=== PATIENT | female | born 1965 | race Caucasian/White ===

== ENCOUNTER 2019-01-16 13:37 | Emergency (ER) | payer MEDICARE, MEDICAID, SELFPAY ==
[2019-01-16 13:38] VITALS: BP 135/84; PULSE 83; RESP 18; TEMP 36.9; O2SAT 98; BMI 28.2
--- NOTE | 2019-01-16 14:00 | RAD_ITS ---
STUDY: X-RAY - LEFT WRIST REASON FOR EXAM: Female, 53 years old. Pain following a fall one month ago. TECHNIQUE: 3 view(s) of the wrist were obtained. COMPARISON: None. FINDINGS: Impacted nondisplaced fracture of the distal radial metaphysis with the dorsal facing. Normal radiocarpal articulation. Normal distal radioulnar articulation. Normal carpal bones. Normal carpal articulations. Normal carpometacarpal articulation of the thumb. Normal second through fifth carpometacarpal articulations. Normal visualized metacarpal bones. Soft tissue swelling. RAD/Wrist min 3 Views IMPRESSION: Impacted transverse fracture of the distal radial metaphysis with dorsal facing and soft tissue swelling. Electronically Signed: Eulogio Helton, at 14:18 EDT , Service support ,
--- NOTE | 2019-01-16 14:37 | ED.DCSUM_ITS ---
- ER Visit Summary Date of Service: 01/16/19 Chief Complaint: Wrist injury History of Present Illness: The patient is a 53 F presents to the emergency department left wrist injury. Patient states that about a month ago, she was outside on her porch. She was arranging furniture. She tripped and fell and l anded on an outstretched wrist. Since then, she had a lot of pain in the wrist. She is noticed she had a deformity. She did not seek care because she thought it would get better. She denies other injury. She is otherwise been in her normal state of health. Physical Examination: Patient does have obvious deformity of the wrist. The skin is intact. There is no tenting. Pulses are normal. Compartments are soft. Neurovascularly intact. Test Results: [] Emergency Department Course and Treatment: The patient underwent x-rays. There is evidence of a distal radius fracture with intra-articular extension. This is over a month old. I do not feel that reduction would be of any benefit at this time. I do feel this is going to need operative fixation. The patient is placed in an AP splint and will be given outpatient orthopedic follow-up for this. She is comfortable with this plan of care. Treatment Plan: [] Disposition: Discharge Impression: 1. Left distal radius fracture This note was generated with [employer] dictation software. It may contain incorrect words, spelling, and punctuation that were not noted in review of the chart prior to signing ED Disposition - Plan for ED Patient: Instructions: ED Fx Colles Wrist Redu Requ Referrals: Kamlesh Aldrich DO [STAFF PHYSICIAN] -
[2019-01-16 14:42] VITALS: BP 129/97; PULSE 79; RESP 16; O2SAT 99
== END 2019-01-16 14:44 | disposition home or self-care (01) ==
PROVIDERS: Emergency Provider Emergency Medicine
DX: S52.572A Other intraarticular fracture of lower end of left radius, initial encounter for closed fracture (principal); W01.0XXA Fall on same level from slipping, tripping and stumbling without subsequent striking against object, initial encounter; Y93.89 Activity, other specified; Y92.008 Other place in unspecified non-institutional (private) residence as the place of occurrence of the external cause; Z72.0 Tobacco use
CPT/HCPCS: 29125; 73110; 99282

== ENCOUNTER 2020-11-21 09:23 | Emergency (ER) | payer MEDICARE, SELFPAY ==
[2019-11-03 09:45] VITALS: BMI 28.2
[2020-11-21 09:24] VITALS: BP 157/102; PULSE 79; RESP 18; TEMP 35.9; O2SAT 97; BMI 27.4
--- NOTE | 2020-11-21 10:00 | RAD_ITS ---
STUDY: X-RAY CHEST REASON FOR EXAM: Female, 55 years old. sick for 2 weeks in october w diarrhea -- still has cough TECHNIQUE: PA and lateral views of the chest. COMPARISON: 08/30/2016 FINDINGS: No change in the reticular opacities of lungs consistent with chronic interstitial lung disease likely idiopathic pulmonary fibrosis. No superimposed alveolar opacity within the lungs to suggest pneumonia or atelectasis. There is no demonstrated pleural abnormality. Normal size heart. Normal mediastinum and geena. Normal visualized pulmonary arteries. Normal visualized aortic arch and descending thoracic aorta. Normal visualized thoracic spine. Normal visualized ribs, clavicles, and shoulders. There is no demonstrated abnormality of the visualized soft tissue structures of the upper abdomen. RAD/Chest PA and Lateral IMPRESSION: Chronic interstitial lung disease without superimposed pneumonia or atelectasis. Electronically Signed: Thien Camacho MD at 10:19 EST Tel , Service support ,
--- NOTE | 2020-11-21 10:01 | ED.DCSUM_ITS ---
History of Present Illness Chief Complaint: Cough Informant: Patient Onset: Weeks Context: Gradual Onset Timing: Continuous Narrative: Patient is a 55-year-old female with history of hypertension and GERD presenting with cough. Patient states he has had a persistent cough in the past 3 weeks. Patient states she was sick at the beginning of October with cough, vomiting and diarrhea. She did have a low-grade fever at that time. She was not tested for Covid. Her symptoms resolved except for the cough which is lingered. She states is productive of clear sputum. Kltu-iaq-ostmanh cough medicines from [employer] seem to help her cough. Patient denies any other concerns at this time. She denies any chest pain or shortness of breath. She denies any swelling of her legs. No hemoptysis is reported. Past Medical History - Allergies and Home Meds Allergies/Adverse Reactions: Allergies acetaminophen [From Tylenol] Adverse Reaction (Verified 11/21/20 09:27) Other SHE KIND OF GOT PALE naproxen sodium [From Aleve] Adverse Reaction (Verified 11/21/20 09:27) Other SHE KIND OF GOT PALE flu shot Allergy (Uncoded 11/21/20 09:27) Anaphylaxis Primary Care Physician: Tigre Brock SPOOL FIXER, SPOOL FIXER-C [Nurse Practitioner] - Past Medical History: - - NSTEMI, seizure disorder, hyperlipidemia, hypertension, GERD Surgical History: noncontributory Smoking Status: Former smoker Review of Systems General: Denies: Chills, Fever, Sweats Eyes: Denies: Visual changes - bilaterally, Diplopia ENT: Denies: Rhinorrhea, Sore throat Cardiovascular: Denies: Chest pain, Palpitations Respiratory: Reports: Cough, Sputum - clear. Denies: Dyspnea, Dyspnea on exertion Gastrointestinal: Denies: Abdominal pain, Nausea, Vomiting, Diarrhea, Melena, Hematochezia Genitourinary: Denies: Dysuria, Hematuria, Frequency Musculoskeletal: Denies: Back pain, Extremity Pain Skin: Denies: Rash, Wounds Neurological: Denies: Headache, Weakness, Numbness Physical Exam Vital Signs/Narrative: Vital Signs Temp Pulse Resp BP Pulse Ox 11/21/20 09:24 96.6 F L 79 18 157/102 H 97 Inital Vital Signs reviewed: Yes General: Well nourished, Well developed, No Acute Distress Head: Normocephalic, Atraumatic Eyes: Perrl, EOMI ENT: Moist mucous membranes, No rhinorrhea Neck: Supple, Nontender Cardiovascular: Regular rate, Regular rhythm, No murmurs Respiratory: No distress, CTA bilaterally, Chest nontender. Negative for: Rales, Rhonchi, Wheezing, Diminished Abdomen: Soft, Nontender, Nondistended, Normal bowel sounds Back: Nontender, Normal Inspection Extremities: Nontender, No edema Skin: Normal color, No rash Neurological: Alert, Oriented x3, Cranial nerves II-XII grossly intact, Normal Strength, Normal Sensation Psychological: Normal Mood, - - Flat affect Diagnostic/Tx/Re-eval Chest X-Ray - ED: 2 View, Read by ED Physician, Read by Radiologist, - - Interstitial lung disease Clinical Impression(s) from Imaging Studies Chest X-Ray 11/21/20 10:00 IMPRESSION: Chronic interstitial lung disease without superimposed pneumonia or atelectasis. Electronically Signed: Thien Camacho MD at 10:19 EST Tel , Service support , - Medical Decision Making Is evaluated for lingering cough. It sounds like patient had a viral illness last month and still has a cough. Patient does not cough while I am in there. Her lung sounds are clear. Her vital signs are normal. She is well-appearing. Chest x-ray obtained shows interstitial lung disease but no acute process. Patient is counseled to possible she could have contracted Covid 19 infection with her initial illness. I do not think testing would be beneficial at this time as her symptoms have been resolving. Patient will be started on Tessalon Perles for her cough. She is encouraged to follow-up with her doctor for further evaluation. Patient is counseled on signs and symptoms requiring return to the emergency room. Patient verbalizes agreement and understand this plan. Patient discharged home in stable and improved condition. ED Disposition - Plan for ED Patient: Disposition: Home or Assisted Living Diagnosis: Cough Instructions: ED Cough Chronic Uncertain Cause Adult Prescriptions: Benzonatate [Tessalon Perle] 200 mg PO TID PRN PRN #20 cap PRN Reason: Cough Transmission Status: Received by [id number] Referrals: Tigre Brock SPOOL FIXER, SPOOL FIXER-C [Nurse Practitioner] -
[2020-11-21 10:20] VITALS: O2SAT 93
[2020-11-21 11:56] VITALS: BP 126/76; PULSE 81; TEMP -7.7; TEMP 18; O2SAT 97
--- NOTE | 2020-11-21 11:57 | ED.RN ---
THIS NURSE REVIEWED D/C INSTRUCTIONS WITH PT. PT VERBALIZED UNDERSTANDING OF INSTRUCTIONS. PT DENIES FURTHER NEEDS OR QUESTIONS AT THIS TIME
== END 2020-11-21 11:57 | disposition home or self-care (01) ==
PROVIDERS: Emergency Provider Emergency Medicine
DX: R05 Cough (principal); J84.9 Interstitial pulmonary disease, unspecified; I25.2 Old myocardial infarction; E78.5 Hyperlipidemia, unspecified; I10 Essential (primary) hypertension; K21.9 Gastro-esophageal reflux disease without esophagitis; Z87.891 Personal history of nicotine dependence; Z88.6 Allergy status to analgesic agent
CPT/HCPCS: 71046; 99282

== ENCOUNTER → 2021-08-01 09:31 | Outpatient (CLI) | payer MEDICARE, SELFPAY ==
[2021-08-01 10:21] LABS: AST(SGOT) 17 U/L (15-37); Alanine Aminotransfer ALT/SGPT 18 U/L (13-56); Albumin, Serum 3.4 g/dL (3.2-5.0); Alkaline Phosphatase 75 U/L (45-117); Bilirubin, Direct 0.08 mg/dL (0.00-0.30); Cholesterol 134 mg/dL (200); Globulin 4.4 g/dL (2.2-4.2); High Density Lipoprotein 55 mg/dL; Protein, Total 7.8 g/dL (6.4-8.2); Triglycerides 69 mg/dL; Very Low Density Lipoprotein 14 mg/dL (5-40)
== END ==
PROVIDERS: Referring Provider Nurse Practitioner Family; Visit Provider Nurse Practitioner Family
DX: E78.2 Mixed hyperlipidemia (principal); I42.8 Other cardiomyopathies
CPT/HCPCS: 80061; 80076

== ENCOUNTER 2022-09-12 01:39 | Inpatient (IN) | payer MEDICARE, SELFPAY ==
[2022-09-12] VITALS (30 sets, daily range): BP systolic 122–152; BP diastolic 64–92; PULSE 76–102; RESP 12–19; TEMP 36.5–37.5; O2SAT 92–98; BMI 23.0; BMI 21.2
--- NOTE | 2022-09-12 02:05 | CT_ITS ---
STUDY: CT ABDOMEN AND PELVIS WITHOUT CONTRAST REASON FOR EXAM: Female, 57 years old. Abdominal pain. Seizures. Tuberous sclerosis. TECHNIQUE: Transaxial images were obtained from the dome of the diaphragm to the symphysis pubis without oral contrast, and without intravenous contrast. Sagittal and coronal images were reconstructed. Individualized dose optimization techniques were used for this CT. COMPARISON: 08/30/2016 CT abdomen pelvis. 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 Moderate four-chamber cardiomegaly and small simple density pericardial effusion. All partially visible and similar to prior. Liver: No concerning lesions. Gallbladder and biliary tree: No visible gallstones. No pericholecystic inflammation. No biliary ductal dilation. Pancreas: No pancreatic lesions or inflammation. Spleen: Normal size, no splenic lesions. Adrenal glands: No concerning masses. Kidneys and ureters: The renal parenchyma has been largely replaced and expanded by heterogenous mostly fatty density with scattered regions of soft tissue when fluid density and some calcifications. Scattered stones are seen in the residual collecting systems, more prominent on the left, increased compared to prior. Bowel: Appendix not identified. No evidence of appendicitis. No obstruction or inflammation of the bowel. Moderate hiatal hernia similar to prior. Urinary bladder: No stones or wall thickening. Reproductive: Is similar to prior. 2.9 cm fibroid extends posteriorly off the uterine fundus. Vascular: No abdominal aortic aneurysm. Retroperitoneal and peritoneal spaces: No ascites or free air. No abscess. Osseous: No acute osseous abnormality. Numerous sclerotic osseous lesions compatible with tuberous sclerosis. Abdominal and pelvic wall: No acute finding. Midline supraumbilical anterior abdominal wall hernia contains fat but no bowel. Any findings described in the findings sections and not included in the impression are incidental and do not require imaging follow-up. CT/Abdomen/Pelvis without Cont IMPRESSION: No acute findings. Sequela of tuberous sclerosis again demonstrated including: -cystic lung disease (lymphangioleiomyomatosis). 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 Several stones in the left greater than right residual collecting systems. -Numerous small sclerotic bone lesions. Other chronic findings include cardiomegaly, small pericardial effusion, and moderate hiatal hernia. Electronically Signed: Feliz Kim MD at 3:58 EST Reading Location ID and State: [address] [place] Tel , Service support ,
--- NOTE | 2022-09-12 02:05 | EKG12_ITS ---
Test Reason : CP Blood Pressure : / mmHG Vent. Rate : 096 BPM Atrial Rate : 096 BPM P-R Int : 138 ms QRS Dur : 094 ms QT Int : 354 ms P-R-T Axes : -05 014 007 degrees QTc Int : 447 ms Normal sinus rhythm Normal ECG Confirmed by HUYEN LICEA, ILEANA ([id number]), publications editor VALENTE GARCIA ([id number]) on 09/15/2022 12:18:34 PM Referred By: JJ Confirmed By:ILEANA MATSON MD
--- NOTE | 2022-09-12 02:08 | EDS_ITS ---
HPI History of Present Illness Chief Complaint: Chest Pain Informant: patient Narrative Narrative: Patient is a 57-year-old female presenting with chest pain. Patient states she has had months of intermittent episodes of chest pain, associated shortness of breath and generalized weakness. She states the pain starts underneath her left breast and radiates to the right side. She points more towards her abdomen when describing the area of pain but states that her chest. [place] the past few months and so she could not call to be evaluated. Today she was at a bar and then walked to the [place] and developed the chest pain. This triggered her to call 911 and she brought to the emergency room. Patient has multiple belongings with her and is wearing multiple layers of clothes however she states that she is not homeless. Patient does have a history of nonischemic cardiomyopathy, hyperlipidemia, NSTEMI and seizures. Patient does admit to having a couple beers today but states she does not drink heavily. I have a higher suspicion that she does drink more than this as her friend in the room makes a comment that she walks in a straight line when she is very intoxicated but tends to swerve when she is sober. Patient denies any nausea or vomiting denies any change to her bowel habits. When asked if she has any skin color changes or notes more yellowing of the skin she is not sure. No other complaints at this time. 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) Home Medications aspirin 81 mg capsule 81 mg PO DAILY 09/12/22 [History Last Taken Unknown] Allergy/AdvReac Type Severity Reaction Status Date / Time Influenza Virus Vaccines Allergy Anaphylaxis Verified 09/12/22 01:47 acetaminophen [From Tylenol] AdvReac Other Verified 09/12/22 01:47 naproxen sodium [From Aleve] AdvReac Other Verified 09/12/22 01:47 Family History Sister Cancer Sister Colon cancer Mother Colon cancer Surgical History History of left heart catheterization (09/04/16) Hx of appendectomy Social History Smoking Status: Former smoker how long ago did patient quit smokin years ago alcohol intake: current alcohol intake frequency: holidays/special occasions only substance use type: does not use caffeine: Yes Type: coffee Number of servings: 1 ROS ROS ED Constitutional Constitutional ED: Denies chills or fever(s) Eyes Eyes: Denies change in vision ENT ENT ED: Denies rhinorrhea or sore throat Cardiovascular Cardiovascular: Reports chest pain; Denies palpitations Respiratory/Chest Respiratory/Chest: Reports dyspnea and dyspnea on exertion; Denies cough Gastrointestinal Gastrointestinal: Denies abdominal pain, constipation, diarrhea, nausea or vomiting Genitourinary Genitourinary ED: Denies dysuria or hematuria Musculoskeletal Musculoskeletal: Denies arthralgias or myalgias Integumentary Denies rash Neurologic Neurologic: Reports weakness; Denies headache(s) or paresthesias Psychiatric Psychiatric: Denies anxiety or depression Hematologic/Lymphatic Hematologic/Lymphatic: Reports easy bruising EXAM Physical Exam Const Vital Signs: 09/12/22 01:41 09/12/22 01:47 Temperature 98.7 F Temperature Source Oral Pulse Rate 96 Respiratory Rate 15 Respiratory Effort Short of Breath Blood Pressure 136/80 H Blood Pressure Mean 98 Pulse Ox 98 Oxygen Delivery Method Room Air Positive well nourished, well developed and unkempt Constitutional Narrative: Disheveled. General Appearance ED: unkempt, well developed, NAD and pallor HEENT Reports moist mucous membranes Negative for trauma Eyes PERRL and EOMs intact bilaterally General Eye ED: Yes scleral icterus Neck supple and no JVD Chest Wall inspection of chest normal and palpation of chest normal Resp normal respiratory effort and clear to auscultation bilaterally Cardio regular rate, regular rhythm and no murmurs GI no masses Inspection: abdominal distention Auscultation: normoactive bowel sounds Palpation: soft; Negative for tender or guarding Back/Spine no CVA tenderness Extremity normal to inspection General Extremety ED: Negative for edema General Extremity: Negative for edema Neuro oriented x3 Neuro Narrative: No focal deficits appreciated Sensorium / Orientation: alert Motor Exam: Negative for general weakness Psych mental status grossly normal Appearance: unkempt Skin no wounds Skin Narrative: Scattered bruises of various stages of healing on the extremities General Skin Exam: jaundice and pallor MDM MDM MDM Narrative Medical decision making narrative: Patient evaluated for dyspnea on exertion and chest pain. This is been ongoing for months. Patient walked from a bar to a gas station tonight. Patient is jaundiced appearing with some pallor. Patient's hemoglobin is significantly low at 3.8. This is microcytic. Her white blood cell count is normal and her platelet count is actually elevated. The CMP shows a creatinine of 2.66 which is actually improved compared to her prior hospitalization. Troponin, BNP and other lab work largely normal. No signs of elevated bilirubin or jaundice. Alcohol is negative. Chest x-ray interpreted by myself as well as radiology shows no acute findings but does have mild cardiomegaly and chronic changes. CT of the abdomen and pelvis shows no acute findings with changes consistent with Tuberous sclerosis. Lab Data Attestation: I reviewed the patient's lab results. Labs: Laboratory Results - last 24 hr 09/12/22 09/12/22 09/12/22 02:25 02:25 02:25 WBC RBC Hgb Hct MCV MCH MCHC RDW Std Deviation RDW Coeff of Tobias Plt Count MPV Immature Gran % (Auto) Neut % (Auto) Lymph % (Auto) Cocke % (Auto) Eos % (Auto) Baso % (Auto) Absolute Neuts (auto) Absolute Lymphs (auto) Nucleated RBC % Diff Path Review Sodium 135 L Potassium 4.2 Chloride 105 Carbon Dioxide 20.0 L Anion Gap 10 BUN 31 H Creatinine 2.66 H Estim Creat Clear Calc 20.49 Est GFR (MDRD) Af Amer 24 L Est GFR (MDRD) Non-Af 20 L BUN/Creatinine Ratio 11.7 Glucose 96 Calcium 8.5 Total Bilirubin 0.30 Direct Bilirubin 0.07 AST 7 L ALT 11 L Alkaline Phosphatase 63 Ammonia Troponin I High Sens 10 B-Natriuretic Peptide 42.4 Total Protein 7.4 Albumin 3.0 L Globulin 4.4 H Lipase 378 Ethyl Alcohol < 3.0 Blood Type Antibody Screen Crossmatch 09/12/22 09/12/22 09/12/22 02:25 02:25 03:05 WBC 7.5 RBC 2.01 L Hgb 3.8 L* Hct 14.0 L MCV 69.7 L MCH 18.9 L MCHC 27.1 L RDW Std Deviation 42.9 RDW Coeff of Tobias 17.3 H Plt Count 627 H MPV 8.4 Immature Gran % (Auto) 0.400 Neut % (Auto) 70.1 H Lymph % (Auto) 18.5 L Cocke % (Auto) 9.4 Eos % (Auto) 1.2 Baso % (Auto) 0.4 Absolute Neuts (auto) 5.2 Absolute Lymphs (auto) 1.38 Nucleated RBC % 0 [address] Review May foll Sodium Potassium Chloride Carbon Dioxide Anion Gap BUN Creatinine Estim Creat Clear Calc Est GFR (MDRD) Af Amer Est GFR (MDRD) Non-Af BUN/Creatinine Ratio Glucose Calcium Total Bilirubin Direct Bilirubin AST ALT Alkaline Phosphatase Ammonia < 10.0 L Troponin I High Sens B-Natriuretic Peptide Total Protein Albumin Globulin Lipase Ethyl Alcohol Blood Type A POSITIVE Antibody Screen NEGATIVE Crossmatch See Detail Radiography Chest X-Ray - ED: 2 View, Read by ED Physician, Read by Radiologist and No Acute Disease Diagnostic Testing: Clinical Impression(s) from Imaging Studies Abdomen/Pelvis CT 09/12/22 02:05 IMPRESSION: No acute findings. Sequela of tuberous sclerosis again demonstrated including: -cystic lung disease (lymphangioleiomyomatosis). 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 Several stones in the left greater than right residual collecting systems. -Numerous small sclerotic bone lesions. Other chronic findings include cardiomegaly, small pericardial effusion, and moderate hiatal hernia. Electronically Signed: Feliz Kim MD at 3:58 EST Reading Location ID and State: [address] [place] [address] Tel , Service support , Chest X-Ray 09/12/22 03:24 IMPRESSION: No acute findings. 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 Electronically Signed: Feliz Kim MD at 4:01 EST Reading Location ID and State: [address] [place] [address] Tel , Service support , Rhythm Strip Rhythm Strip: Sinus Rhythm Rate: 96 Ectopy: None EKG Initial EKG: Attestation: I personally reviewed and interpreted this EKG as follows: Interpretation: Sinus Rhythm Comments: Normal sinus rhythm at a rate of 96 bpm Normal axis Normal intervals Normal ST segments Discharge Plan Triage Chief Complaint: Chest Pain ED Provider: Yuliana Muniz Dx/Rx/DC Orders Clinical Impression: Symptomatic anemia, Non-ischemic cardiomyopathy, Tuberous sclerosis, Chest pain Primary Care Provider: Care Physician,No Primary Disposition Disposition: Acute Care [facility]
[2022-09-12] MEDS: 0.9% Normal Saline 1,000 ML 125 ML IV (02:27)
[2022-09-12 02:51] LABS: Absolute Lymphocyte Count 1.38 X10^3/uL (0.83-4.51); Absolute Neutrophil Count 5.2 X10^3/uL (2.0-7.7); Basophil# 0.03 X10^3/uL; Basophil% 0.4 % (0-1); Eosinophil# 0.09 X10^3/uL; Eosinophils% 1.2 % (0-5); Lymphocyte # 1.38 X10^3/ul (0.83-4.51); Lymphocyte % 18.5 % (19-41); Mean Corp Hgb Conc 27.1 g/dL (32-36); Mean Corpuscular Hgb 18.9 pg (27.0-32.0); Mean Corpuscular Volume 69.7 fL (81-99); Mean Platelet Vol. 8.4 fl (6.2-12.0); Monocyte% 9.4 % (0-10); NRBC Flagged by Analyzer 0 % (0-5); Neutrophil # 5.23 X10^3/uL (2.7-7.7); Neutrophil % 70.1 % (47-70); POSITIVE COUNT YES; Platelet Count 627 K/mm3 (150-450); RBC Distribution Width CV 17.3 % (11.6-14.6); RBC Distribution Width SD 42.9 fl (35.1-43.9); Red Blood Count 2.01 M/mm3 (4.2-5.4); White Blood Count 7.5 K/mm3 (4.4-11.0)
[2022-09-12 02:52] LABS: Hemoglobin 3.8 g/dL (12.0-15.0)
[2022-09-12 03:01] LABS: AST(SGOT) 7 U/L (15-37); Alanine Aminotransfer ALT/SGPT 11 U/L (13-56); Alkaline Phosphatase 63 U/L (45-117); Anion Gap 10 (5-15); BUN 31 mg/dL (7-18); BUN/Creat Ratio 11.7 RATIO (10-20); Bilirubin, Direct 0.07 mg/dL (0.00-0.30); Calcium,Total 8.5 mg/dL (8.5-10.1); Chloride 105 mmol/L (98-107); Creatinine, Serum 2.66 mg/dL (0.55-1.02); EST Glomerular Filtration Rate 20 mL/min (>60); Est Glom Filt Rate - Afr Amer 24 mL/min (>60); Estimated Creatinine Clearance 20.49 ml/min; Globulin 4.4 g/dL (2.2-4.2); Glucose 96 mg/dL (74-106); Lipase 378 U/L (73-393); Potassium 4.2 mmol/L (3.5-5.1); Protein, Total 7.4 g/dL (6.4-8.2); Sodium Level 135 mmol/L (136-145); Troponin-I HS 10 pg/mL (3.0-54.0)
[2022-09-12 03:02] LABS: Alcohol, Blood (Medical)-Serum < 3.0 mg/dL
[2022-09-12 03:10] LABS: BNP,B-Type NATRIURETIC PEPTIDE 42.4 pg/mL (0-100)
--- NOTE | 2022-09-12 03:24 | RAD_ITS ---
STUDY: X-RAY CHEST REASON FOR EXAM: Female, 57 years old. Chest pain. Tuberosclerosis. TECHNIQUE: PA and lateral COMPARISON: 11/21/2020 CXR FINDINGS: Mild cardiomegaly and cystic lung disease again demonstrated. No evidence of acute pneumonia, edema, pneumothorax or pleural effusion. Trachea midline. Mediastinal and hilar contours otherwise unremarkable. No evidence of free air in the upper abdomen. Mild right scoliosis thoracolumbar spine. No acute osseous abnormality. RAD/Chest PA and Lateral IMPRESSION: No acute findings. 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 Electronically Signed: Feliz Kim MD at 4:01 EST Reading Location ID and State: [address] [place] [address] Tel , Service support ,
[2022-09-12 03:51] LABS: Ammonia < 10.0 umol/L (11-32)
--- NOTE | 2022-09-12 04:55 | PCM.HP.STD ---
HPI - General General Date of Admission: 09/12/22 Date of Service: 09/12/22 Chief Complaint: Chest pain HPI Narrative CAROLANN NGUYEN, is a 57 F with a significant history of tuberous sclerosis who presents to the emergency department with chest pain that started about walking 4 minutes. She described the pain as sharp and excruciating. She denies any associated or ameliorating factors to the pain. The pain started from below her left breast and moved to below her right breast. The pain was episodic. Patient's friend who was walking with patient called paramedics and patient was immediately brought to the emergency department. Associated with her symptoms is shortness of breath and increased dyspnea on exertion. Also patient complains of nausea Patient actually complains that shortness of breath has been going on for about 2 months and it has been progressively worsening. She report that she takes aspirin about twice in a week because of chest pain. At the emergency department patient was found to be anemic. She report that somewhere in August 2022 she had 2 episodes of hematemesis. Also in July 2022 she had black and tarry stools. Emergency department doctor reports brown stools on rectal exams that was sent for occult stools. [facility] Medical History Acute ypr-NW-zibztebei myocardial infarction (08/2016) Hyperlipidemia Seizures Septic shock (08/2016) Tuberous sclerosis (08/2016) Home Medications aspirin 81 mg capsule 81 mg PO DAILY 09/12/22 [History Last Taken Unknown] Allergy/AdvReac Type Severity Reaction Status Date / Time Influenza Virus Vaccines Allergy Anaphylaxis Verified 09/12/22 01:47 acetaminophen [From Tylenol] AdvReac Other Verified 09/12/22 01:47 naproxen sodium [From Aleve] AdvReac Other Verified 09/12/22 01:47 Family History Sister Cancer Sister Colon cancer Mother Colon cancer Surgical History History of left heart catheterization (09/04/16) Hx of appendectomy Social History Smoking Status: Former smoker how long ago did patient quit smokin years ago alcohol intake: current alcohol intake frequency: holidays/special occasions only substance use type: does not use caffeine: Yes Type: coffee Number of servings: 1 ROS ROS Narrative Pertinent positives and pertinent negatives as noted in HPI. All other systems were reviewed and are negative Vital Signs Vital Signs Vital Signs: 09/12/22 01:41 09/12/22 01:47 09/12/22 04:51 Temperature 98.7 F Temperature Source Oral Pulse Rate 96 95 Respiratory Rate 15 14 Respiratory Effort Short of Breath Blood Pressure 136/80 H 151/82 H Blood Pressure Mean 98 105 Pulse Ox 98 97 Oxygen Delivery Method Room Air Room Air Weight Weight: 62.7 kg Body Mass Index (BMI) 23.0 Physical Exam Narrative Physical exam: General: Well-nourished, well-developed. Head: Normocephalic, atraumatic, no tenderness Eyes: Vision is grossly intact. EOMI ENT: Poor dentition. No rhinorrhea Neck: Nontender, No thyromegaly. CVS: Regular rate and rhythm. S1-S2 present. No murmur, gallop or rub. Respiratory : clear to auscultation bilaterally, chest wall nontender, no wheezing Abdomen: Soft, nontender, nondistended, normal bowel sounds, no masses : Deferred Back: Nontender, no CVA tenderness. Extremities: Nontender full range of motion, no trauma Skin: Pale and jaundiced. Scattered multiple ulcers on skin Neuro: Alert, oriented, cranial nerves II through XII grossly intact. Psychiatry: Normal mood. Normal affect. Not depressed. Not anxious. Results Lab / Micro Data Result Diagrams: 09/12/22 02:25 09/12/22 02:25 Labs: Laboratory Results - last 24 hr 09/12/22 02:25: Sodium 135 L, Potassium 4.2, Chloride 105, Carbon Dioxide 20.0 L, Anion Gap 10, BUN 31 H, Creatinine 2.66 H, Estim Creat Clear Calc 20.49, Est GFR (MDRD) Af Amer 24 L, Est GFR (MDRD) Non-Af 20 L, BUN/Creatinine Ratio 11.7, Glucose 96, Calcium 8.5, Total Bilirubin 0.30, Direct Bilirubin 0.07, AST 7 L, ALT 11 L, Alkaline Phosphatase 63, Troponin I High Sens 10, Total Protein 7.4, Albumin 3.0 L, Globulin 4.4 H, Lipase 378 09/12/22 02:25: Ethyl Alcohol < 3.0 09/12/22 02:25: B-Natriuretic Peptide 42.4 09/12/22 02:25: WBC 7.5, RBC 2.01 L, Hgb 3.8 L*, Hct 14.0 L, MCV 69.7 L, MCH 18.9 L, MCHC 27.1 L, RDW Std Deviation 42.9, RDW Coeff of Tobias 17.3 H, Plt Count 627 H, MPV 8.4, Immature Gran % (Auto) 0.400, Neut % (Auto) 70.1 H, Lymph % (Auto) 18.5 L, [place] % (Auto) 9.4, Eos % (Auto) 1.2, Baso % (Auto) 0.4, Absolute Neuts (auto) 5.2, Absolute Lymphs (auto) 1.38, Nucleated RBC % 0, Diff Path Review February09/12/22 02:25: Ammonia < 10.0 L 09/12/22 03:05: Blood Type A POSITIVE, Antibody Screen NEGATIVE, Crossmatch See Detail Rhythm Strip Rhythm Strip: Sinus Rhythm Rate: 96 Ectopy: None Radiology Impression Abdomen/Pelvis CT 09/12/22 02:05 IMPRESSION: No acute findings. Sequela of tuberous sclerosis again demonstrated including: -cystic lung disease (lymphangioleiomyomatosis). 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 Several stones in the left greater than right residual collecting systems. -Numerous small sclerotic bone lesions. Other chronic findings include cardiomegaly, small pericardial effusion, and moderate hiatal hernia. Electronically Signed: Feliz Kim MD at 3:58 EST Reading Location ID and State: [address] [place] [address] Tel , Service support , Chest X-Ray 09/12/22 03:24 IMPRESSION: No acute findings. 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 Electronically Signed: Feliz Kim MD at 4:01 EST Reading Location ID and State: [address] [place] [address] Tel , Service support , Assessment & Plan Assessment/Plan (1) Blood loss anemia: PLAN: Plan Blood loss anemia Likely subacute as reportedly she was having black tarry stools in July 2022. Hemoglobin of 3.8 on presentation. Last hemoglobin on file was on 08/30/2016 and it was 12.3. MCV of 69.7, microcytic. Vitamin B12, folate, iron studies, LDL and haptoglobin ordered. PT/INR ordered. 2 units of blood ordered emergency department to be transfused, trend H&H. No antiplatelets at this time. Protonix drip started emergency department and continued. Chest pain is likely secondary to blood loss anemia Troponin negative. Trend troponin. Chest x-ray reviewed showed no ST-T abnormalities. Admit on telemetry at the ICU. As needed morphine ordered. Elevated creatinine Creatinine presentation was 2.66. Review of records show that creatinine on 08/30/2016 was 3.43. Review of community records did not show any previous creatinine to compare to baseline. Trend BMP. Received normal saline at emergency department. Resuscitation with blood as above. DVT prophylaxis SCDs ordered. Charges/Coding Visit Charges Inpatient E&M: 59757 Init Hosp L3
--- NOTE | 2022-09-12 08:10 | PCM.HOSP.N ---
Hospitalist Note Patient was seen and examined briefly today, she stated she came in the hospital due to sharp chest pain. Patient states she does not have a family physician. Patient states she has a history of seizures that she has outgrown labs obtained in the ER yesterday showed a normal troponin, patient's hemoglobin however was low at 3.8, patient's creatinine was elevated at 2.66. According to the medical record patient also has a history of nonischemic cardiomyopathy. Second troponin is pending at this time, patient is due to have endoscopy today, she is being transfused 2 units of packed red blood cells. I will type and cross the patient for 2 more units of packed red blood cells and transfuse.
[2022-09-12 08:29] LABS: Troponin-I HS 11 pg/mL (3.0-54.0)
--- NOTE | 2022-09-12 15:06 | CON.PCM_ITS ---
Assessment & Plan Assessment/Plan (1) Symptomatic anemia: PLAN: The differential diagnosis for her anemia is peptic ulcer disease seconda ry to H. pylori, NSAIDs. Also dual diagnosis is celiac disease, neoplasia, telangiectasia, angiodysplasia. She should undergo an upper and lower endoscopy to evaluate upper lower GI tract due to her strong family still colon cancer and history of NSAID usage. She can have clear liquids. Procedure will be scheduled for 09/14/2022. She can start prepping tomorrow around noon time. HPI Consult Data Date of Consult: 09/12/22 HPI Narrative Reason for Consultation: Anemia HPI Narrative: CAROLANN NGUYEN, is a 57 F with a significant history of tuberous sclerosis who presents to the emergency department with chest pain that started about walking 4 minutes.? She described the pain as sharp and excruciating.? She denies any a ssociated or ameliorating factors to the pain.? The pain started from below her left breast and moved to below her right breast.? The pain was episodic.? Associated with her symptoms? is shortness of breath and increased dyspnea on exertion. In the emergency department patient was found to be anemic. Her heme globin was determined to be 3.8. She does admit to nonsteroidal usage on a daily basis w ith ibuprofen. She also has a strong family history of colon cancer in her mother and sister. She is never had a colonoscopy. She report that somewhere in August 2022 she had 2 episodes of hematemesis.? Also in July 2022 she had black and tarry stools. Emergency department doctor reports brown stools on rectal exams that was sent for occult stools. [facility], [facility] Medical History Acute deq-PQ-mrfgkcbpc myocardial infarction (08/2016) Hyperlipidemia Seizures Septic shock (08/2016) Tuberous sclerosis (08/2016) Home Medications aspirin 81 mg capsule 81 mg PO DAILY 09/12/22 [History Last Taken Unknown] Allergy/AdvReac Type Severity Reaction Status Date / Time Influenza Virus Vaccines Allergy Anaphylaxis Verified 09/12/22 01:47 acetaminophen [From Tylenol] AdvReac Other Verified 09/12/22 01:47 naproxen sodium [From Aleve] AdvReac Other Verified 09/12/22 01:47 Family History Sister Cancer Sister Colon cancer Mother Colon cancer Surgical History History of left heart catheterization (09/04/16) Hx of appendectomy Social History Smoking Status: Former smoker how long ago did patient quit smokin years ago alcohol intake: current alcohol intake frequency: holidays/special occasions only substance use type: does not use caffeine: Yes Type: coffee Number of servings: 1 ROS ROS Narrative Pertinent positives and pertinent negatives as noted in HPI. All other systems were reviewed and are negative Physical Exam Narrative Physical exam: General: Well-nourished, well-developed. Head: Normocephalic, atraumatic, no tenderness Eyes: Vision is grossly intact. EOMI ENT: Poor dentition. No rhinorrhea Neck: Nontender, No thyromegaly. CVS: Regular rate and rhythm. S1-S2 present. No murmur, gallop or rub. Respiratory : clear to auscultation bilaterally, chest wall nontender, no wheezing Abdomen: Soft, nontender, nondistended, normal bowel sounds, no masses : Deferred Back: Nontender, no CVA tenderness. Extremities: Nontender full range of motion, no trauma Skin: Pale and jaundiced. Scattered multiple ulcers on skin Neuro: Alert, oriented, cranial nerves II through XII grossly intact. Psychiatry: Normal mood. Normal affect. Not depressed. Not anxious. Lab / Micro Data Result Diagrams: 09/12/22 02:25 09/12/22 02:25 Labs: Laboratory Results - last 24 hr 09/12/22 02:25: Sodium 135 L, Potassium 4.2, Chloride 105, Carbon Dioxide 20.0 L , Anion Gap 10, BUN 31 H, Creatinine 2.66 H, Estim Creat Clear Calc 20.49, Est GFR (MDRD) Af Amer 24 L, Est GFR (MDRD) Non-Af 20 L, BUN/Creatinine Ratio 11.7, Glucose 96, Calcium 8.5, Total Bilirubin 0.30, Direct Bilirubin 0.07, AST 7 L, ALT 11 L, Alkaline Phosphatase 63, Troponin I High Sens 10, Total Protein 7.4, Albumin 3.0 L, Globulin 4.4 H, Lipase 378 09/12/22 02:25: Ethyl Alcohol < 3.0 09/12/22 02:25: B-Natriuretic Peptide 42.4 09/12/22 02:25: WBC 7.5, RBC 2.01 L, Hgb 3.8 L*, Hct 14.0 L, MCV 69.7 L, MCH 18.9 L, MCHC 27.1 L, RDW Std Deviation 42.9, RDW Coeff of Tobias 17.3 H, Plt Count 627 H, MPV 8.4, Immature Gran % (Auto) 0.400, Neut % (Auto) 70.1 H, Lymph % (Auto) 18.5 L, [place] % (Auto) 9.4, Eos % (Auto) 1.2, Baso % (Auto) 0.4, Absolute Neuts (auto) 5.2, Absolute Lymphs (auto) 1.38, Nucleated RBC % 0, Diff Path Review February09/12/22 02:25: Ammonia < 10.0 L 09/12/22 03:05: Blood Type A POSITIVE, Antibody Screen NEGATIVE, Crossmatch See Detail 09/12/22 03:05: Crossmatch See Detail 09/12/22 08:05: Troponin I High Sens 11 Micro: Microbiology 09/12/22 04:55 Stool Stool Occult Blood (CHRISTOPHER) - Final Rhythm Strip Rhythm Strip: Sinus Rhythm Rate: 96 Ectopy: None Radiology Impression Abdomen/Pelvis CT 09/12/22 02:05 IMPRESSION: No acute findings. Sequela of tuberous sclerosis again demonstrated including: -cystic lung disease (lymphangioleiomyomatosis). 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 Several stones in the left greater than right residual collecting systems. -Numerous small sclerotic bone lesions. Other chronic findings include cardiomegaly, small pericardial effusion, and moderate hiatal hernia. Electronically Signed: Feliz Kim MD at 3:58 EST Reading Location ID and State: [address] [place] [address] Tel , Service support , Chest X-Ray 09/12/22 03:24 IMPRESSION: No acute findings. 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 Electronically Signed: Feliz Kim MD at 4:01 EST Reading Location ID and State: [address] [place] Tel , Service support , Charges/Coding Visit Charges Inpatient E&M: 12047 Init Hosp L2
[2022-09-12 15:20] LABS: Platelet Count 720 K/mm3 (150-450)
[2022-09-12 15:32] LABS: RET-HE 14.8 pg (30-35); Reticulocyte Count 0.86 % (0.5-1.5)
--- NOTE | 2022-09-12 16:50 | CASEMGMT ---
HARRY WILEY FILM INSPECTOR CM to room to meet with patient for initial transition planning/care coordination assessment. HARRY WILEY introduced self and role at [facility].? Pt voices understanding and consents to assessment at this time.? Pt resting in bed in no distress at this time.? Pt is A/O at this time and answers all questions appropriately.?? Care providers, pharmacy, and demographics verified/updated at this time.? PCP:?No PCP. Provided w/list of local PCP's and encouraged to get established w/PCP. Specialists:?[facility] Preferred Pharmacy:?[facility] Insurance:?Emma Avitia Prescription Benefit:?Yes Living Will/HPOA:??Pt does not currently have LW/HCPOA and would like to complete. Pt made aware SW will not be available this weekend to complete. Made aware if SW unavailable to meet w/her while @ [facility] this can be completed as an OP. Pt provided w/SW Rac card w/contact info. Order placed for SW consult for AD. LNOK:?, Ruben. Brother, Milind. Pt states she does not have any children. Living Arrangements:?Noted in ED note that pt arrived w/multiple layers of clothing on her and multiple belongings. She denies being homeless. She states she lives w/her in trail that they have rented for a couple of months. She then stated, It's one bedroom. She states no running water currently and states is using a space heater. Pt sates, I have furnaces and I have to call to have them turned on but would not elaborate any further. HARRY WILEY inquired if she has electricity but then stated I have to call the [employer] to look at the box. HARRY WILEY reason for need to contact them and she stated, I don't know why. She states her friend takes her to [employer] to get groceries. She stated she has food stamps, but then stated, I'm fighting to get them back. She then stated, My payee gives me a check every Wednesday and she pays my bills. She states her payee is Flower Cohen. She would not elaborate further. Order placed for SW consult. Transportation:?Pt states neither her nor her drive. She states her friend, Dax, will most likely be able to take her home @ discharge. DME: ? Denies using any DME and denies needs.?? HHC/SNF:?No hx of either. Pt wishes to discharge home w/. CM/SW to follow for further discharge planning needs. Plan:??home w/ Ross LINDERN HARRY CM?
[2022-09-12] MEDS: Ondansetron 4 MG/2 ML Vial IV (20:20)
[2022-09-12] MEDS: 0.9% Saline Lock 10 ML Syringe IV (20:20)
[2022-09-12 20:30] LABS: Hematocrit 25.8 % (37-47)
[2022-09-12 21:00] LABS: Iron 14 ug/dL (50-170); Iron Binding Capacity,Total 353 ug/dL (250-450)
[2022-09-13] VITALS (17 sets, daily range): BP systolic 119–144; BP diastolic 72–86; PULSE 75–92; RESP 15–18; TEMP 36.4–37.3; O2SAT 94–99
[2022-09-13 05:07] LABS: Absolute Lymphocyte Count 1.15 X10^3/uL (0.83-4.51); Basophil# 0.02 X10^3/uL; Basophil% 0.2 % (0-1); Eosinophil# 0.16 X10^3/uL; Hematocrit 26.4 % (37-47); Hemoglobin 8.1 g/dL (12.0-15.0); Lymphocyte # 1.15 X10^3/ul (0.83-4.51); Lymphocyte % 14.1 % (19-41); Mean Corp Hgb Conc 30.7 g/dL (32-36); Mean Corpuscular Hgb 23.9 pg (27.0-32.0); Mean Corpuscular Volume 77.9 fL (81-99); Mean Platelet Vol. 8.1 fl (6.2-12.0); Monocyte% 9.8 % (0-10); NRBC Flagged by Analyzer 0 % (0-5); Neutrophil % 73.5 % (47-70); POSITIVE MORPHOLOGY YES; Platelet Count 502 K/mm3 (150-450); RBC Distribution Width CV 20.6 % (11.6-14.6); Red Blood Count 3.39 M/mm3 (4.2-5.4); White Blood Count 8.2 K/mm3 (4.4-11.0)
[2022-09-13 05:21] LABS: International Normalized Ratio 1.1; Prothrombin Time (Protime)PT. 13.5 SECONDS (11.7-14.9)
[2022-09-13 05:24] LABS: Differential Indicated SCAN CRITERIA MET
[2022-09-13 05:25] LABS: ALB/GLOB Ratio 0.7 RATIO (0.9-2.4); AST(SGOT) 5 U/L (15-37); Alanine Aminotransfer ALT/SGPT 9 U/L (13-56); Albumin, Serum 2.5 g/dL (3.2-5.0); Alkaline Phosphatase 63 U/L (45-117); Anion Gap 7 (5-15); BUN 24 mg/dL (7-18); BUN/Creat Ratio 11.4 RATIO (10-20); Calcium,Total 8.1 mg/dL (8.5-10.1); Chloride 114 mmol/L (98-107); EST Glomerular Filtration Rate 26 mL/min (>60); Est Glom Filt Rate - Afr Amer 31 mL/min (>60); Estimated Creatinine Clearance 28.05 ml/min; Globulin 3.8 g/dL (2.2-4.2); Glucose 93 mg/dL (74-106); Potassium 4.1 mmol/L (3.5-5.1); Protein, Total 6.3 g/dL (6.4-8.2); Sodium Level 140 mmol/L (136-145)
[2022-09-13 05:30] LABS: Anisocytosis 2+; Microcytosis 1+; Platelet Estimate MOD INC (ADEQ)
[2022-09-13] MEDS: Bisacodyl 5 MG Tablet 20 MG PO (11:46)
[2022-09-13] MEDS: Polyethylene Glycol 3350 BOWEL PREP PO (12:34)
--- NOTE | 2022-09-13 12:35 | PCM.PN.HOSP ---
Subjective Subjective Patient was seen and examined today, her hemoglobin today was 8.1, she does not appear in any distress and has no complaints to this examiner. Patient is being prepped for a colonoscopy tomorrow, she will also have an EGD. Patient appears stable to move her out to the floor from the ICU. Hemoccult of the patient's stool was negative done in the emergency room. Objective Data Objective Data Vital Signs: Vital Signs Temp Pulse Resp BP Pulse Ox O2 Del Method 98.5 F 86 18 131/77 H 99 Room Air 09/13/22 11:49 09/13/22 11:49 09/13/22 11:49 09/13/22 11:49 09/13/22 11:49 09/13/22 11:49 Oxygen Delivery Method Room Air Weight: 62.1 kg Body Mass Index (BMI) 21.2 Intake & Output: Intake and Output for Last 24 Hours 09/11/22 09/12/22 09/13/22 23:59 23:59 23:59 Intake Total 2693.83 / 2693.83 195.17 / 195.17 Output Total 720 / 720 Balance 2693.83 / 2693.83 -524.83 / -524.83 Lab / Micro Data Result Diagrams: 09/13/22 05:00 09/13/22 05:00 Labs: Laboratory Results - last 24 hr 09/12/22 02:25: Iron 14 L, TIBC 353, Iron Saturation 4.0 L 09/12/22 03:05: Crossmatch See Detail 09/12/22 03:05: Crossmatch See Detail 09/12/22 05:00: Retic Count 0.86, Immature Retic Fraction 21.20 H, Retic Hgb Equivalent 14.8 L 09/12/22 20:10: Hgb 8.0 L, Hct 25.8 L 09/13/22 05:00: PT 13.5, INR 1.1 09/13/22 05:00: WBC 8.2, RBC 3.39 L, Hgb 8.1 L, Hct 26.4 L, MCV 77.9 L D, MCH 23.9 L, MCHC 30.7 L D, RDW Std Deviation 58.0 H, RDW Coeff of Tobias 20.6 H, Plt Count 502 H, MPV 8.1, Immature Gran % (Auto) 0.400, Neut % (Auto) 73.5 H, Lymph % (Auto) 14.1 L, [place] % (Auto) 9.8, Eos % (Auto) 2.0, Baso % (Auto) 0.2, Absolute Neuts (auto) 6.0, Absolute Lymphs (auto) 1.15, Nucleated RBC % 0, Platelet Estimate MOD INC, Anisocytosis 2+, Microcytosis 1+ 09/13/22 05:00: Sodium 140, Potassium 4.1, Chloride 114 H, Carbon Dioxide 19.0 L, Anion Gap 7, BUN 24 H, Creatinine 2.10 H, Estim Creat Clear Calc 28.05, Est GFR (MDRD) Af Amer 31 L, Est GFR (MDRD) Non-Af 26 L, BUN/Creatinine Ratio 11.4, Glucose 93, Calcium 8.1 L, Total Bilirubin 0.60, AST 5 L, ALT 9 L, Alkaline Phosphatase 63, Total Protein 6.3 L, Albumin 2.5 L, Globulin 3.8, Albumin/Globulin Ratio 0.7 L Micro: Microbiology 09/12/22 04:55 Stool Stool Occult Blood (CHRISTOPHER) - Final Rhythm Strip Rhythm Strip: Sinus Rhythm Rate: 96 Ectopy: None Physical Exam Const alert, oriented x3 and no apparent distress Constitutional Narrative: Appears older than her stated age General Appearance: cooperative, well kempt and well developed Orientation / Consciousness: awake, oriented to person, oriented to place and oriented to time HEENT normocephalic, head/scalp atraumatic and moist oral mucous membranes Eyes PERRL, EOMs intact bilaterally and conjunctivae normal Neck supple, no JVD, thyroid normal and no carotid bruits General: trachea midline Resp normal respiratory effort, no retractions, no use of accessory muscles and clear to auscultation bilaterally Auscultation: Negative for rales, rhonchi or wheezes Cardio regular rate, regular rhythm, no murmurs, no rub and no gallops GI normal to inspection, nondistended, normoactive bowel sounds, soft to palpation, non-tender and non-distended Extremity no clubbing, cyanosis or edema Skin no rashes or lesions noted General Skin Exam: no breakdown Neuro oriented x3, CN's II-XII intact bilaterally, no focal motor deficits and no sensory deficits noted Sensorium / Orientation: awake, alert, oriented to person and oriented to place Speech: speech normal Psych affect normal Assessment & Plan Assessment/Plan (1) Blood loss anemia: PLAN: Plan 1. Iron deficiency anemia requiring blood transfusion-etiology unclear-suspected to be secondary to blood loss, patient was seen by gastroenterology and will undergo an upper and lower endoscopy. #2 tuberosclerosis-by history-complicates care, management, recovery, and prognosis #3 chest pain-patient presented to the ER with an episode of sharp chest pain, she has not had a reoccurrence of the chest pain, etiology is unknown at this time. #4 nonischemic cardiomyopathy-patient is currently not taking any medication for this #5 nonobstructive coronary artery disease-patient is not taking any medications currently Charges/Coding Visit Charges Inpatient E&M: 68471 Subs Hosp L2
[2022-09-13] MEDS: 0.9% Saline Lock 10 ML Syringe IV (21:25)
[2022-09-14] VITALS (16 sets, daily range): BP systolic 130–151; BP diastolic 70–86; PULSE 81–96; RESP 12–18; TEMP 36.8–37.4; O2SAT 92–97; BMI 21.0
[2022-09-14 06:06] LABS: Absolute Lymphocyte Count 1.15 X10^3/uL (0.83-4.51); Absolute Neutrophil Count 4.9 X10^3/uL (2.0-7.7); Basophil# 0.03 X10^3/uL; Basophil% 0.4 % (0-1); Eosinophils% 2.7 % (0-5); Hematocrit 26.3 % (37-47); Lymphocyte # 1.15 X10^3/ul (0.83-4.51); Lymphocyte % 15.8 % (19-41); Mean Corp Hgb Conc 30.4 g/dL (32-36); Mean Corpuscular Hgb 23.7 pg (27.0-32.0); Mean Corpuscular Volume 77.8 fL (81-99); Mean Platelet Vol. 8.3 fl (6.2-12.0); Monocyte# 0.98 X10^3/uL; Monocyte% 13.4 % (0-10); NRBC Flagged by Analyzer 0 % (0-5); Neutrophil # 4.89 X10^3/uL (2.7-7.7); Neutrophil % 67.2 % (47-70); POSITIVE MORPHOLOGY YES; Platelet Count 508 K/mm3 (150-450); RBC Distribution Width CV 21.7 % (11.6-14.6); RBC Distribution Width SD 60.7 fl (35.1-43.9); Red Blood Count 3.38 M/mm3 (4.2-5.4); White Blood Count 7.3 K/mm3 (4.4-11.0)
[2022-09-14 06:17] LABS: Differential Indicated SCAN CRITERIA MET
[2022-09-14 06:26] LABS: Prothrombin Time (Protime)PT. 13.3 SECONDS (11.7-14.9)
[2022-09-14 06:27] LABS: Partial Thromboplast Time 33.6 Seconds (24.1-36.2)
[2022-09-14 06:42] LABS: ALB/GLOB Ratio 0.7 RATIO (0.9-2.4); AST(SGOT) 8 U/L (15-37); Alanine Aminotransfer ALT/SGPT 9 U/L (13-56); Albumin, Serum 2.8 g/dL (3.2-5.0); Alkaline Phosphatase 67 U/L (45-117); Anion Gap 6 (5-15); BUN 22 mg/dL (7-18); BUN/Creat Ratio 10.9 RATIO (10-20); Calcium,Total 8.5 mg/dL (8.5-10.1); Chloride 113 mmol/L (98-107); Creatinine, Serum 2.01 mg/dL (0.55-1.02); EST Glomerular Filtration Rate 27 mL/min (>60); Est Glom Filt Rate - Afr Amer 33 mL/min (>60); Estimated Creatinine Clearance 29.31 ml/min; Globulin 3.9 g/dL (2.2-4.2); Glucose 95 mg/dL (74-106); Potassium 3.6 mmol/L (3.5-5.1); Protein, Total 6.7 g/dL (6.4-8.2); Sodium Level 139 mmol/L (136-145)
[2022-09-14 06:57] LABS: Anisocytosis 2+; Microcytosis 1+; Platelet Estimate MOD INC (ADEQ)
[2022-09-14 08:59] LABS: Vitamin B12 379 pg/mL (211-911)
[2022-09-14] MEDS: 0.9% Saline Lock 10 ML Syringe IV ×2 (11:12→22:27)
--- NOTE | 2022-09-14 12:02 | NURSING ---
Olegario From Surgery came to get pt and brought her down to Endo via bed at this time. Pt is off the floor.
--- NOTE | 2022-09-14 12:15 | EGD_PTH ---
PATIENT: CAROLANN NGUYEN LOC: [facility] U#:[id number] AGE/SX: 57/F ROOM: [facility] RE09/12/[address]: Dr. Carlos Phipps MD : 1965 BED: 1 DIS: 09/15/2022 SPEC #: [id number] RECD: 09/14/22 13:59 STATUS: SHARON SANCHEZ #: [id number] LALITO: 09/14/22 12:[address]: Harpreet Santos DEPT: SURGICAL PATHOLOGY RECD BY: Lisette Hernandez ENTERED: 09/15/22 10:04 SP TYPE: EGD BIOPSY OTHR DR: MD Dr. Dean Ratliff, DO MD Dr. Harpreet Solis, DO No Primary Care Phys Tissues: A - Esophagus, NOS B - Esophagus, NOS Procedures: Special Stain Group II Surgery Specimen Level IV Alcian Blue/PAS (control) Comments: @ Ordering doctor for FRAN edited from to @ by CRYSTAL at 09/15/22 1408 @ Submitting doctor edited from to @ by RGOOD at 09/15/22 1408 HEADER OPERATION: EGD ([facility] [place]) with biopsies and electrocautery PRE-OP DIAGNOSIS: Symptomatic anemia TISSUE SUBMITTED: A ? Distal esophagus biopsy, B ? Lesser curvature biopsy MICROSCOPIC DIAGNOSIS A. Distal esophagus, biopsy: Fragments of gastroesophageal mucosa with extensive ulceration, acute and chronic inflammation and granulation tissue reaction. Intestinal metaplasia (goblet cell metaplasia) not identified. See comment. B. Lesser curvature, biopsy: Mild gastritis. See microscopic description and comment. SJ:indira 09/16/2022 COMMENT A. Alcian blue/PAS stain with matched control is used in the evaluation of the specimen. B. The results of immunohistochemistry for Helicobacter pylori will be reported separately ([id number]). MICROSCOPIC DESCRIPTION Slides are reviewed. B. The specimen shows fragments of gastric mucosa with chronic inflammatory cell infiltrates in the lamina propria consisting of lymphocytes and plasma cells, consistent with mild chronic gastritis. GROSS DESCRIPTION A - Received in fixative is one container labeled with the patient's name and designated distal esophagus biopsy. The specimen consists of multiple irregular fragments of light crain soft tissue that in aggregate measure 1.2 x 0.3 x 0.1 cm. The specimen is totally submitted in one cassette. B - Received in fixative is one container labeled with the patient's name and designated lesser curvature biopsy. The specimen consists of two irregular fragments of light crain soft tissue that in aggregate measure 0.6 x 0.5 x 0.1 cm. The specimen is totally submitted in one cassette. / SJ:indira 09/15/2022 TC:2 CPT: 97124 x2, 97510
--- NOTE | 2022-09-14 12:15 | IMM_PTH ---
PATIENT: CAROLANN NGUYEN LOC: [facility] U#:[id number] AGE/SX: 57/F ROOM: [facility] RE09/12/[address]: Dr. Carlos Phipps MD : 1965 BED: 1 DIS: 09/15/2022 SPEC #: [id number] RECD: 09/15/22 14:06 STATUS: SHARON SANCHEZ #: [id number] LALITO: 09/14/22 12:[address]: Harpreet Santos DEPT: IMMUNOHISTOCHEMISTRY RECD BY: Maribell Heredia ENTERED: 09/15/22 14:07 SP TYPE: IMMUNO OTHR DR: MD Dr. Dean Ratliff, DO Dr. Carlos Phipps MD No Primary Care Phys Tissues: B - Stomach, NOS Procedures: H Pylori (initial) PHYSICIAN & INSTITUTION [place] [address] SPECIMEN INFORMATION: Tissue Source: B Kate monk biopsy Clinical Info: Symptomatic anemia Specimen Number: [id number] CPT code: 39726 METHODOLOGY: Deparaffinized sections of prefer/formalin-fixed tissue or PAP/DQ stained slides are incubated with monoclonal/polyclonal antibodies/oligonucleotide probes. Localization is made via biotin free immunoperoxidase method. Appropriate controls are performed and reacted as expected. Results on target cell population are indicated in the following table: RESULTS: ANTIBODY / CLONE RESULT Block B H Pylori (polyclonal) negative These tests were developed and their performance characteristics determined by [facility]. They may not have been cleared or approved by the U.S. Food and Drug Administration. The FDA has determined that such clearance or approval is not necessary. The above immunohistochemical/dualISH markers are ordered and reviewed by the Pathologist. INTERPRETATION: Liza monk, biopsy: Negative for Helicobacter pylori organisms. SJ:indira 09/16/2022
--- NOTE | 2022-09-14 12:40 | PN.HOSP_ITS ---
Subjective Subjective Feels better than when she came in, no issues overnight plan for EGD and colonoscopy today Objective Data Objective Data Vital Signs: Vital Signs Temp Pulse Resp BP Pulse Ox O2 Del Method 99.3 F H 87 16 151/77 H 97 Room Air 09/14/22 10:55 09/14/22 10:55 09/14/22 10:55 09/14/22 10:55 09/14/22 10:55 09/14/22 10:55 Oxygen Delivery Method Room Air Weight: 134 lb 4.184 oz Body Mass Index (BMI) 21.0 Intake & Output: Intake and Output for Last 24 Hours 09/13/22 09/14/22 09/15/22 03:59 03:59 03:59 Intake Total 2789.00 / 2789.00 417.33 / 417.33 110 / 110 Output Total 720 / 720 Balance 2789.00 / 2069.00 -302.67 / -302.67 110 / 110 Lab / Micro Data Result Diagrams: 09/14/22 05:51 09/14/22 05:51 Labs: Laboratory Results - last 24 hr 09/12/22 02:25: Vitamin B12 379 09/14/22 05:51: WBC 7.3, RBC 3.38 L, Hgb 8.0 L, Hct 26.3 L, MCV 77.8 L, MCH 23.7 L, MCHC 30.4 L, RDW Std Deviation 60.7 H, RDW Coeff of Tobias 21.7 H, Plt Count 508 H, MPV 8.3, Immature Gran % (Auto) 0.500, Neut % (Auto) 67.2, Lymph % (Auto) 15.8 L, [place] % (Auto) 13.4 H, Eos % (Auto) 2.7, Baso % (Auto) 0.4, Absolute Neuts (auto) 4.9, Absolute Lymphs (auto) 1.15, Nucleated RBC % 0, Platelet Estimate MOD INC, Anisocytosis 2+, Microcytosis 1+ 09/14/22 05:51: Sodium 139, Potassium 3.6, Chloride 113 H, Carbon Dioxide 20.0 L , Anion Gap 6, BUN 22 H, Creatinine 2.01 H, Estim Creat Clear Calc 29.31, Est GFR (MDRD) Af Amer 33 L, Est GFR (MDRD) Non-Af 27 L, BUN/Creatinine Ratio 10.9, Glucose 95, Calcium 8.5, Total Bilirubin 0.60, AST 8 L, ALT 9 L, Alkaline Phosphatase 67, Total Protein 6.7, Albumin 2.8 L, Globulin 3.9, Albumin/Globulin Ratio 0.7 L 09/14/22 05:51: PT 13.3, INR 1.0, APTT 33.6 Micro: Microbiology 09/12/22 04:55 Stool Stool Occult Blood (CHRISTOPHER) - Final Rhythm Strip Rhythm Strip: Sinus Rhythm Rate: 96 Ectopy: None Physical Exam Narrative General: Alert, Oriented x3, Cooperative, No apparent distress HEENT: Atraumatic, PERRLA, EOMI, Normocephalic Oral: Moist Mucosa Neck: Supple, No JVD Lungs: Clear to auscultation, Normal air movement, No rhonchi, No wheeze, No rales Cardiovascular: Regular rate, Regular Rhythm, Normal S1, Normal S2, No murmurs Abdomen: Soft, Non Tender, Non-Distended, No Hepato-splenomegaly Extremities: No edema, Capillary Refill Less than 3 Seconds Skin: No rashes, No breakdown Musculoskeletal: No Tenderness to Palpation of Joints or Extremities Neurological: Cranial nerves II-XII grossly intact, Motor Exam 5/5 strength throughout, Sensory exam intact to light touch and pain Psych/Mental Status: Normal Affect, Appropriate Assessment & Plan Assessment/Plan (1) Blood loss anemia: PLAN: Plan 1. Iron deficiency anemia requiring blood transfusion for occult blood was negative ? We will plan for an EGD and a colonoscopy to complete the work-up given how significant her anemia was ? We will hold her aspirin and continue with her PPI ? She did have some chest pain with this episode of anemia likely due to how se verely low her hemoglobin was for troponins were unremarkable on admission and she no longer has any chest pain so we will not pursue further work-up 2. She does have a history of nonobstructive coronary disease as well as possible tuberculosis does not appear to be on any medications for either of these and does not appear to be very compliant DVT: SCDs Charges/Coding Visit Charges Inpatient E&M: 64365 Subs Hosp L2
--- NOTE | 2022-09-14 13:01 | OP.EGD_ITS ---
Patient Name: Lorena Parra Procedure Date: 09/14/2022 12:33 PM Date of : 1965 Age: 57 Procedure: Upper GI endoscopy Indications: Epigastric abdominal pain, Iron deficiency anemia Providers: Harpreet Santos DO Medicines: Monitored Anesthesia Care Patient Profile: This is a 57 year old female. Refer to note in patient chart for documentation of history and physical. Patient has symptoms of acute epigastric abdominal pain, acute dyspepsia and acute nausea. Complications: No immediate complications. Procedure: Pre-Anesthesia Assessment: - Prior to the procedure, a History and Physical was performed, and patient medications and allergies were reviewed. The patient is competent. The risks and benefits of the procedure and the sedation options and risks were discussed with the patient. All questions were answered and informed consent was obtained. Patient identification and proposed procedure were verified by the physician in the pre-procedure area. Mental Status Examination: alert and oriented. Respiratory Examination: clear to auscultation. CV Examination: normal. Prophylactic Antibiotics: The patient does not require prophylactic antibiotics. Prior Anticoagulants: The patient has taken no previous anticoagulant or antiplatelet agents. ASA Grade Assessment: II - A patient with mild systemic disease. After reviewing the risks and benefits, the patient was deemed in satisfactory condition to undergo the procedure. The anesthesia plan was to use monitored anesthesia care (MAC). Immediately prior to administration of medications, the patient was re-assessed for adequacy to receive sedatives. The heart rate, respiratory rate, oxygen saturations, blood pressure, adequacy of pulmonary ventilation, and response to care were monitored throughout the procedure. The physical status of the patient was re-assessed after the procedure. After obtaining informed consent, the endoscope was passed under direct vision. Throughout the procedure, the patient's blood pressure, pulse, and oxygen saturations were monitored continuously. The gastroscope was introduced through the mouth, and advanced to the second part of duodenum. The upper GI endoscopy was accomplished without difficulty. The patient tolerated the procedure well. Scope In: 12:46:39 PM Scope Out: 12:54:27 PM Total Procedure Duration Time 0 hours 7 minutes 48 seconds Findings: LA Grade D (one or more mucosal breaks involving at least 75% of esophageal circumference) esophagitis with bleeding was found 35 to 39 cm from the incisors. Biopsies were taken with a cold forceps for histology. Verification of patient identification for the specimen was done. Coagulation for hemostasis using argon plasma at 0.3 liters/minute and 20 davies was successful. Estimated blood loss was minimal. A medium-sized hiatal hernia was present. Localized granular mucosa was found on the lesser curvature of the stomach. Biopsies were taken with a cold forceps for histology. Verification of patient identification for the specimen was done. Estimated blood loss was minimal. The first portion of the duodenum was normal. Impression: - LA Grade D erosive esophagitis. Biopsied. Treated with argon plasma coagulation (APC). - Medium-sized hiatal hernia. - Granular gastric mucosa. Biopsied. - Normal first portion of the duodenum. Recommendation: - Discharge patient to home. - Resume previous diet. - Continue present medications. - Await pathology results. - Repeat upper endoscopy in 1 year for surveillance. - Outpatient colonoscopy because of a very strong family history of colon cancer. Patient refused to take a prep in the hospital in order to perform a safe colonoscopy. - Return to GI office. Procedure Code(s): --- Professional --- 81881, 57, Esophagogastroduodenoscopy, flexible, transoral; with control of bleeding, any method 15199, 51, Esophagogastroduodenoscopy, flexible, transoral; with biopsy, single or multiple CPT copyright 2017 [employer]. All rights reserved. The codes documented in this report are preliminary and upon internet programmer review may be revised to meet current compliance requirements. Harpreet Santos DO 09/14/2022 1:01:02 PM This report has been signed electronically. Number of Addenda: 0 Note Initiated On: 09/14/2022 12:33 PM
--- NOTE | 2022-09-14 13:01 | OP.CCLET_ITS ---
09/14/2022 No Primary Care Physician Re : Upper GI end[facility] This procedure was performed on Wednesday, September 14, 2022. My impressions and recommendations are as follows: Impressions : - LA Grade D erosive esophagitis. Biopsied. Treated with argon plasma coagulation (APC). - Medium-sized hiatal hernia. - Granular gastric mucosa. Biopsied. - Normal first portion of the duodenum. Recommendations : - Discharge patient to home. - Resume previous diet. - Continue present medications. - Await pathology results. - Repeat upper endoscopy in 1 year for surveillance. - Outpatient colonoscopy because of a very strong family history of colon cancer. Patient refused to take a prep in the hospital in order to perform a safe colonoscopy. - Return to GI office. My findings are described in the full procedure note, which is enclosed. If I can be of further assistance, please feel free to contact me at . Sincerely, Harpreet Santos, 09/14/2022 1:01:02 PM This report has been signed electronically.
[2022-09-14 14:19] LABS: Pathologist Review Reviewed
--- NOTE | 2022-09-14 15:09 | NURSING ---
Pt sitting up in chair, assisted by this RN. Assisted in ordering dinner.
[2022-09-14] MEDS: Pantoprazole Sodium 40 MG Tablet PO (22:26)
[2022-09-15] VITALS (7 sets, daily range): BP systolic 146–154; BP diastolic 75–90; PULSE 79–92; RESP 16–18; TEMP 36.9–37.2; O2SAT 92–95
[2022-09-15 06:36] LABS: Absolute Lymphocyte Count 1.14 X10^3/uL (0.83-4.51); Absolute Neutrophil Count 6.1 X10^3/uL (2.0-7.7); Basophil# 0.03 X10^3/uL; Basophil% 0.4 % (0-1); Eosinophil# 0.22 X10^3/uL; Eosinophils% 2.6 % (0-5); Hematocrit 27.1 % (37-47); Hemoglobin 8.5 g/dL (12.0-15.0); Lymphocyte # 1.14 X10^3/ul (0.83-4.51); Lymphocyte % 13.5 % (19-41); Mean Corp Hgb Conc 31.4 g/dL (32-36); Mean Corpuscular Hgb 24.9 pg (27.0-32.0); Mean Corpuscular Volume 79.5 fL (81-99); Mean Platelet Vol. 8.8 fl (6.2-12.0); Monocyte% 10.6 % (0-10); NRBC Flagged by Analyzer 0 % (0-5); Neutrophil # 6.14 X10^3/uL (2.7-7.7); Neutrophil % 72.4 % (47-70); POSITIVE MORPHOLOGY YES; Platelet Count 532 K/mm3 (150-450); RBC Distribution Width CV 22.8 % (11.6-14.6); RBC Distribution Width SD 63.4 fl (35.1-43.9); Red Blood Count 3.41 M/mm3 (4.2-5.4); White Blood Count 8.5 K/mm3 (4.4-11.0)
[2022-09-15 06:41] LABS: Differential Indicated SCAN CRITERIA MET
[2022-09-15 07:00] LABS: Anion Gap 8 (5-15); BUN 26 mg/dL (7-18); BUN/Creat Ratio 11.3 RATIO (10-20); Calcium,Total 8.5 mg/dL (8.5-10.1); Chloride 112 mmol/L (98-107); EST Glomerular Filtration Rate 23 mL/min (>60); Est Glom Filt Rate - Afr Amer 28 mL/min (>60); Estimated Creatinine Clearance 25.61 ml/min; Glucose 133 mg/dL (74-106); Potassium 3.2 mmol/L (3.5-5.1); Sodium Level 139 mmol/L (136-145)
[2022-09-15 07:01] LABS: Differential Comment SCANNED
[2022-09-15 07:02] LABS: Anisocytosis 1+; Macrocytosis RARE; Microcytosis 1+
--- NOTE | 2022-09-15 09:00 | PN_ITS ---
Subjective Subjective Patient went an EGD yesterday. She refused to drink GoLytely for colonoscopy. She had no problems overnight. She is not experiencing abdominal pain. She is tolerating a diet. Objective Data Objective Data Vital Signs: Vital Signs Temp Pulse Resp BP Pulse Ox O2 Del Method 98.4 F 89 18 154/75 H 95 Room Air 09/15/22 13:50 09/15/22 13:50 09/15/22 13:50 09/15/22 13:50 09/15/22 13:50 09/15/22 13:50 Oxygen Delivery Method Room Air Weight: 136 lb 3.931 oz Body Mass Index (BMI) 21.0 Intake & Output: Intake and Output for Last 24 Hours 09/13/22 09/14/22 09/15/22 23:59 23:59 23:59 Intake Total 402.50 / 402.50 520 / 520 Output Total 720 / 720 720 / 720 Balance -317.50 / -317.50 -200 / -200 Lab / Micro Data Result Diagrams: 09/15/22 05:28 09/15/22 05:28 Labs: Laboratory Results - last 24 hr 09/15/22 05:28: WBC 8.5, RBC 3.41 L, Hgb 8.5 L, Hct 27.1 L, MCV 79.5 L, MCH 24.9 L, MCHC 31.4 L, RDW Std Deviation 63.4 H, RDW Coeff of Tobias 22.8 H, Plt Count 532 H, MPV 8.8, Immature Gran % (Auto) 0.500, Neut % (Auto) 72.4 H, Lymph % (Auto) 13.5 L, [place] % (Auto) 10.6 H, Eos % (Auto) 2.6, Baso % (Auto) 0.4, Absolute Neuts (auto) 6.1, Absolute Lymphs (auto) 1.14, Nucleated RBC % 0, Differential Comment SCANNED, Anisocytosis 1+, Microcytosis 1+, Macrocytosis RARE 09/15/22 05:28: Sodium 139, Potassium 3.2 L, Chloride 112 H, Carbon Dioxide 19.0 L, Anion Gap 8, BUN 26 H, Creatinine 2.30 H, Estim Creat Clear Calc 25.61, Est GFR (MDRD) Af Amer 28 L, Est GFR (MDRD) Non-Af 23 L, BUN/Creatinine Ratio 11.3, Glucose 133 H, Calcium 8.5 09/15/22 12:36: POC Glucose 118 H Micro: Microbiology 09/12/22 04:55 Stool Stool Occult Blood (CHRISTOPHER) - Final Rhythm Strip Rhythm Strip: Sinus Rhythm Rate: 96 Ectopy: None Physical Exam Narrative General: Alert, Oriented x3, Cooperative, No apparent distress HEENT: Atraumatic, PERRLA, EOMI, Normocephalic Oral: Moist Mucosa Neck: Supple, No JVD Lungs: Clear to auscultation, Normal air movement, No rhonchi, No wheeze, No rales Cardiovascular: Regular rate, Regular Rhythm, Normal S1, Normal S2, No murmurs Abdomen: Soft, Non Tender, Non-Distended, No Hepato-splenomegaly Extremities: No edema, Capillary Refill Less than 3 Seconds Skin: No rashes, No breakdown Musculoskeletal: No Tenderness to Palpation of Joints or Extremities Neurological: Cranial nerves II-XII grossly intact, Motor Exam 5/5 strength throughout, Sensory exam intact to light touch and pain Psych/Mental Status: Normal Affect, Appropriate Assessment & Plan Assessment/Plan (1) Blood loss anemia: PLAN: Blood loss anemia in part thought to be secondary to severe erosive e sophagitis with bleeding in the esophagus that was treated endoscopically with APC. She was placed on PPI therapy. She is not have any esophageal dysphagia after APC treatment. She will be discharged on twice daily PPI therapy and she will need repeat endoscopy in the future for further biopsies. She should have an outpatient colonoscopy as she has a very strong family history of colon cancer in her mother and her sister. (2) Erosive esophagitis: PLAN: . She was treated with IV PPI 40 mg IV every 12 hours and transition to 40 mg p.o. twice daily. She is tolerating oral intake and she is tolerating pills without any odynophagia. She can be discharged and have a follow-up as an outpatient. Charges/Coding Visit Charges Inpatient E&M: 68867 Subs Hosp L2
--- NOTE | 2022-09-15 10:02 | DCINST_ITS ---
Discharge Instructions Diet Discharge Diet: No restrictions Activity Discharge Activity: Return to Normal Activity Dressing / Incision Call your doctor if you observe: Fever of 101 or Higher, Shortness of breath, Dizziness, Fainting spells, Swelling in the ankles, Chest pain and Increased palpitations (irregular heartbeat) Follow Up Care Test Results: Test results from this visit will be discussed in further detail at your follow- up appointment, if applicable. Discharge Plan Admission Admit Date/Time: 09/12/22 06:39 Attending Provider: Carlos Phipps Primary Care Provider: Care Physician,No Primary Consulting Providers: Mu Michel ; Harpreet Santos ; Dean Marrero Discharge Orders/Prescriptions Prescriptions: New pantoprazole 40 mg Tablet,Delayed Release (Dr/Ec) 40 mg PO BID 30 Days Qty: 60 0RF Discontinued aspirin 81 mg Capsule 81 mg PO DAILY Referrals / Follow Up: Harpreet Santos DO [Med Staff - Active Staff] - Within 1 Month Care Physician,No Primary [Primary Care Provider] - Within 1 Week Disposition Disposition (needs filled in before D/C Order can be placed): Home, Self Care
--- NOTE | 2022-09-15 10:07 | CASEMGMT ---
SW Note GAMA met with patient and introduced herself as [facility] [employer]. SW inquired about patient's living conditions as well as current supports/ resources. [place] . Patient reports she doesn't know the address which is why she hasn't turned on the utilities. Patient explained they use a propain heater at home currently. SW provided information regarding [employer] for housing support, [employer] for utility and transportation programs as well as the [employer] for any other needs. Patient reports she works with [employer] for housing support and has a payee through [employer]. Patient stated her payee was aware of the current situation and did not need SW to contact the payee. SW inquired about patient's level of safety at home and comfort level returning home. Patient explained she was fine to go home and didn't voice any other concerns. SW remains available if needs arise. Plan: Provided resources for housing support, utility programs and [employer] resource list. Madina Oviedo COMMUNITY DEVELOPMENT DIRECTOR,DANIEL
[2022-09-15] MEDS: Pantoprazole Sodium 40 MG Tablet PO (10:20)
--- NOTE | 2022-09-15 11:13 | PHA.DC.MC ---
Pharmacy Service has performed discharge medication reconciliation and counseling for this patient. 1. PANTOPRAZOLE 40MG PO BID The patient's discharge medication list was reviewed for discrepancies and discrepancies were resolved. Home Medications pantoprazole 40 mg tablet,delayed release 40 mg PO BID 30 days #60 tabs 09/15/22 The patient was counseled on the following discharge medications and changes in medications for homegoing were reviewed. The Reason for Use, instructions for use, and potential side effects were reviewed for all new medications. The patient's questions regarding all of their medications were answered. The patient was able to verbally demonstrate an understanding of their discharge medications.
--- NOTE | 2022-09-15 11:37 | PCM.DC.SUM ---
Providers Date of Admission: 09/12/22 Primary Care Physician: No Primary Care Phys Consultations 09/12/22 06:39 Consult: Gastroenterology Routine Consulting Provider: Harpreet Santos Reason for Consult: ABLA EMERGENT Consult: No MD Notified: Yes Date Notified: 09/12/22 Time Notified: 07:32 Method of Notification: Text Reason For Visit: ACUTE BLOOD LOSS ANEMIA Diagnosis Discharge Diagnosis (1) Blood loss anemia: Status: Acute Code(s): D50.0 - Iron deficiency anemia secondary to blood loss (chronic) Plan 1. Iron deficiency anemia requiring blood transfusion for occult blood was negative ? We will plan for an EGD and a colonoscopy to complete the work-up given how significant her anemia was ? We will hold her aspirin and continue with her PPI ? She did have some chest pain with this episode of anemia likely due to how severely low her hemoglobin was for troponins were unremarkable on admission and she no longer has any chest pain so we will not pursue further work-up 2. She does have a history of nonobstructive coronary disease as well as possible tuberculosis does not appear to be on any medications for either of these and does not appear to be very compliant DVT: SCDs Medications at Discharge Home Medications pantoprazole 40 mg tablet,delayed release 40 mg PO BID 30 days #60 tabs 09/15/22 Hospital Course Operations None Procedures EGD Summary of Care Provided Minutes Spent on Discharge: 40 Hospital Course: Per HPI: CAROLANN NGUYEN, is a 57 F with a significant history of tuberous sclerosis who presents to the emergency department with chest pain that started about walking 4 minutes.? She described the pain as sharp and excruciating.? She denies any associated or ameliorating factors to the pain.? The pain started from below her left breast and moved to below her right breast.? The pain was episodic.? Patient's friend who was walking with patient called paramedics and patient was immediately brought to the emergency department.? Associated with her symptoms? is shortness of breath and increased dyspnea on exertion. Also patient complains of nausea Patient actually complains that shortness of breath has been going on for about 2 months and it has been progressively worsening.? She report that she takes aspirin about twice in a week because of chest pain. At the emergency department patient was found to be anemic. She report that somewhere in August 2022 she had 2 episodes of hematemesis.? Also in July 2022 she had black and tarry stools. Emergency department doctor reports brown stools on rectal exams that was sent for occult stools. Hospital Course: 1. Iron deficiency anemia as well as an upper GI bleed from erosive esophagitis requiring blood transfusions?57-year-old female with a history of tuberous sclerosis presents to the emergency department with chest pain. She was found to have a hemoglobin of 3.8, troponins were unremarkable and we did not pursue further cardiac work-up she does have a history of nonobstructive coronary artery disease, her last heart cath in our system was in 2015 that was performed at [facility] at that time she was found to have systolic cardiomyopathy. She does not want to be on any medications and so the only medication she was taking was aspirin. This will be discontinued and we will plan on twice daily PPI with outpatient follow-up with gastroenterology to perform a colonoscopy, she has a strong history of colon cancer in the family. She refused to drink the prep while she was here so she did have an EGD which showed erosive esophagitis that was coagulated. Her hemoglobin is stable today at 8.5 and she feels much better than when she came in, I discussed with her the plan for discharge today she expressed understanding of the risk and benefits of going home and would like to go home today. Physical Exam Narrative General: Alert, Oriented x3, Cooperative, No apparent distress HEENT: Atraumatic, PERRLA, EOMI, Normocephalic Oral: Moist Mucosa Neck: Supple, No JVD Lungs: Clear to auscultation, Normal air movement, No rhonchi, No wheeze, No rales Cardiovascular: Regular rate, Regular Rhythm, Normal S1, Normal S2, No murmurs Abdomen: Soft, Non Tender, Non-Distended, No Hepato-splenomegaly Extremities: No edema, Capillary Refill Less than 3 Seconds Skin: No rashes, No breakdown Musculoskeletal: No Tenderness to Palpation of Joints or Extremities Neurological: Cranial nerves II-XII grossly intact, Motor Exam 5/5 strength throughout, Sensory exam intact to light touch and pain Psych/Mental Status: Normal Affect, Appropriate Weight / BMI Weight Weight: 136 lb 3.931 oz Body Mass Index (BMI) 21.0 ABG / Lab / Microbiology Data Result Diagrams: 09/15/22 05:28 09/15/22 05:28 Laboratory: Laboratory Results - last 24 hr 09/12/22 02:25: Diff Path Review Reviewed 09/15/22 05:28: WBC 8.5, RBC 3.41 L, Hgb 8.5 L, Hct 27.1 L, MCV 79.5 L, MCH 24.9 L, MCHC 31.4 L, RDW Std Deviation 63.4 H, RDW Coeff of Tobias 22.8 H, Plt Count 532 H, MPV 8.8, Immature Gran % (Auto) 0.500, Neut % (Auto) 72.4 H, Lymph % (Auto) 13.5 L, [place] % (Auto) 10.6 H, Eos % (Auto) 2.6, Baso % (Auto) 0.4, Absolute Neuts (auto) 6.1, Absolute Lymphs (auto) 1.14, Nucleated RBC % 0, Differential Comment SCANNED, Anisocytosis 1+, Microcytosis 1+, Macrocytosis RARE 09/15/22 05:28: Sodium 139, Potassium 3.2 L, Chloride 112 H, Carbon Dioxide 19.0 L, Anion Gap 8, BUN 26 H, Creatinine 2.30 H, Estim Creat Clear Calc 25.61, Est GFR (MDRD) Af Amer 28 L, Est GFR (MDRD) Non-Af 23 L, BUN/Creatinine Ratio 11.3, Glucose 133 H, Calcium 8.5 Microbiology: Microbiology 09/12/22 04:55 Stool Stool Occult Blood (CHRISTOPHER) - Final D/C Instructions Discharge Diet: No restrictions Call your doctor if you observe: Fever of 101 or Higher, Shortness of breath, Dizziness, Fainting spells, Swelling in the ankles, Chest pain and Increased palpitations (irregular heartbeat) Meaningful Use Info Meaningful Use Diagnoses (Choose all that apply): None applicable Discharge Plan Admission Admit Date/Time: 09/12/22 06:39 Attending Provider: Carlos Phipps Primary Care Provider: Care Physician,No Primary Consulting Providers: Mu Michel ; Friend,Harpreet ; Dean Marrero Instructions Additional Instructions / Restrictions: Follow-up with your PCP in 3 to 5 days to obtain an outpatient CBC to monitor your anemia. Discharge Orders/Prescriptions Prescriptions: New pantoprazole 40 mg Tablet,Delayed Release (Dr/Ec) 40 mg PO BID 30 Days Qty: 60 0RF Discontinued aspirin 81 mg Capsule 81 mg PO DAILY Referrals / Follow Up: Harpreet Santos DO [Med Staff - Active Staff] - Within 1 Month Care Physician,No Primary [Primary Care Provider] - Within 1 Week Disposition Disposition (needs filled in before D/C Order can be placed): Home, Self Care Charges/Coding Visit Charges Inpatient E&M: 57536 Disch Hosp
[2022-09-15 13:05] LABS: Bedside Glucose 118 mg/dL (74-106)
[2022-09-15 15:08] LABS: Folate, RBC (Hct) Test 26.2 % (34.0-46.6); Folates, RBC Test 1844 ng/mL (>498); LDL, Direct 120295 57 mg/dL (0-99)
[2022-09-15 20:53] LABS: Haptoglobin 268 mg/dL (33-346)
== END 2022-09-15 14:50 | disposition home or self-care (01) | DRG 369 ==
LOC: ED 04:45 → ICU 05:55 → PCU 09-13 14:56
PROVIDERS: Anesthesiology; Internal Medicine; Internal Medicine Critical Care Medicine; Internal Medicine Gastroenterology; Admitting Provider Hospitalist; Emergency Provider Emergency Medicine; Visit Provider Family Medicine
PROC: 0DJD8ZZ Inspection of Lower Intestinal Tract, Via Natural or Artificial Opening Endoscopic (ICD-10-PCS; CPT 45378; principal; 2022-09-14 12:10)
DX: K20.81 Other esophagitis with bleeding (principal); Q85.1 Tuberous sclerosis; I42.8 Other cardiomyopathies; D62 Acute posthemorrhagic anemia; R17 Unspecified jaundice; E78.5 Hyperlipidemia, unspecified; I25.10 Atherosclerotic heart disease of native coronary artery without angina pectoris; K44.9 Diaphragmatic hernia without obstruction or gangrene; I25.2 Old myocardial infarction; Z87.891 Personal history of nicotine dependence; Z79.82 Long term (current) use of aspirin
CPT/HCPCS: 36415; 71046; 74176; 80048; 80053; 80076; 82077; 82140; 82274; 82607; 82747; 82962; 83010; 83540; 83550; 83690; 83721; 83880; 84484; 85014; 85018; 85025; 85045; 85610; 85730; 86850; 86900; 86901; 86920; 86922; 88305; 88313; 88342; 93005; 99285; J7030; J7040; J7120; P9016; P9040; A4216; J2405

== ENCOUNTER 2022-09-17 04:47 | Emergency (ER) | payer MEDICARE, SELFPAY ==
[2022-09-17 04:48] VITALS: BP 159/88; PULSE 85; RESP 18; TEMP 36.6; O2SAT 98; BMI 24.0
--- NOTE | 2022-09-17 05:04 | EKG12_ITS ---
Test Reason : DYSRYTHMIA Blood Pressure : / mmHG Vent. Rate : 076 BPM Atrial Rate : 076 BPM P-R Int : 158 ms QRS Dur : 098 ms QT Int : 416 ms P-R-T Axes : 024 -09 018 degrees QTc Int : 468 ms Normal sinus rhythm Normal ECG Confirmed by FLYNN LICEA, AURORA ([id number]), television news video editor VALENTE GARCIA ([id number]) on 09/22/2022 10:34:33 AM Referred By: KRYSTAL Confirmed By:KIRK PRUETT MD
--- NOTE | 2022-09-17 05:06 | EX.ED.DYSGE1 ---
HPI History of Present Illness Chief Complaint: Lower Extremity Injury Detail of Chief Complaint: Left leg pain and weakness Informant: patient Narrative Narrative: Patient presents emergency department complaint of left leg pain that started this morning while she was out walking with her friend. Patient states that she got sudden onset of pain in her left leg. Patient rubs the upper portion of her anterior thigh but says the whole leg hurts. She denies fall or injury. Patient states that she then could not walk because of the pain in it. She denies any back pain. She is not had pain like this before. She denies chest pain or shortness of breath. She otherwise states that she feels pretty well other than a little tired. Patient was admitted recently to the hospital for anemia with a hemoglobin of 3.8 and states that she received blood products. She cannot tell me why she was anemic. Prior similar symptoms: No PFSH PFS Medical History (Updated 09/17/22 @ 06:[address] 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) Home Medications pantoprazole 40 mg tablet,delayed release 40 mg PO BID 30 days #60 tabs 09/15/22 [Rx Last Taken Unknown] oxycodone 5 mg capsule 5 mg PO Q6H PRN pain 2 days #10 caps 09/17/22 [Rx Last Taken Unknown] Allergy/AdvReac Type Severity Reaction Status Date / Time Influenza Virus Vaccines Allergy Anaphylaxis Verified 09/12/22 01:47 acetaminophen [From Tylenol] AdvReac Other Verified 09/12/22 01:47 naproxen sodium [From Aleve] AdvReac Other Verified 09/12/22 01:47 Family History Sister Cancer Sister Colon cancer Mother Colon cancer Surgical History History of left heart catheterization (09/04/16) Hx of appendectomy Social History Smoking Status: Former smoker how long ago did patient quit smokin years ago alcohol intake: current alcohol intake frequency: holidays/special occasions only substance use type: does not use caffeine: Yes Type: coffee Number of servings: 1 ROS ROS ED Review of Systems ROS Unobtainable: other Constitutional Constitutional ED: Reports lethargy; Denies chills, fever(s), sweats or weight loss Eyes Eyes: Denies blurry vision, change in vision or diplopia ENT ENT ED: Denies rhinorrhea or sore throat Cardiovascular Cardiovascular: Denies chest pain, orthopnea or racing heartbeat Respiratory/Chest Respiratory/Chest: Denies cough, dyspnea, dyspnea on exertion, orthopnea or sputum Gastrointestinal Gastrointestinal: Denies abdominal pain, diarrhea, nausea or vomiting Genitourinary Genitourinary ED: Denies dysuria, hematuria or urinary frequency Musculoskeletal Musculoskeletal: Reports other Details: Left leg pain ; Denies arthralgias, back pain, myalgias or neck pain Integumentary Denies abscess, Abrasions or rash Neurologic Neurologic: Denies headache(s) or weakness Psychiatric Psychiatric: Denies anxiety, depression or suicidal thoughts Endocrine Endocrinology: Denies polydipsia, polyphagia or polyuria Hematologic/Lymphatic Hematologic/Lymphatic: Denies easy bleeding, easy bruising or lymphadenopathy Allergic/Immunologic Allergic/Immunologic ED: Denies mouth swelling, tongue swelling or urticaria EXAM Physical Exam Const Vital Signs: 09/17/22 04:48 Temperature 97.8 F Temperature Source Temporal Pulse Rate 85 Respiratory Rate 18 Blood Pressure 159/88 H Blood Pressure Mean 111 Pulse Ox 98 Oxygen Delivery Method Room Air Positive well nourished and well developed General Appearance ED: well developed and NAD HEENT Reports TM's clear and moist mucous membranes normocephalic and atraumatic; Negative for trauma or tenderness Tympanic Membrane ED: Yes TM's clear Eyes PERRL and EOMs intact bilaterally General Eye ED: Negative for pale conjunctiva or scleral icterus Neck no lymphadenopathy, supple and no JVD General: Negative for tenderness Chest Wall inspection of chest normal and palpation of chest normal Chest: Negative for tenderness Resp normal respiratory effort and clear to auscultation bilaterally Effort and Inspection: Negative for respiratory distress or pain with movement Auscultation: Negative for rhonchi, wheezes or diminished lung sounds Cardio regular rate, regular rhythm, S1 normal heart sound, S2 normal heart sound and no murmurs Peripheral Pulses: pulses 2+ throughout GI normal to inspection, nondistended, normoactive bowel sounds, soft to palpation, non-tender, non-distended and no masses Back/Spine no CVA tenderness and no thoracic nor lumbar tenderness Extremity normal to inspection Extremity Narrative: Left leg-patient has no evidence of trauma to her leg. Patient has normal femoral, popliteal, dorsal pedal and posterior tibial pulses. There is no evidence of swelling or erythema. She is able to move the leg without difficulty. General Extremety ED: Negative for edema General Extremity: Negative for edema Neuro oriented x3, CN's II-XII intact bilaterally, no sensory deficits noted and gait normal Sensorium / Orientation: awake, alert, oriented to person, oriented to place and oriented to time Motor Exam: strength 5/5 throughout and strength abnormal Psych mental status grossly normal Skin no rashes or lesions noted and no wounds MDM MDM MDM Narrative Medical decision making narrative: Temps on arrival. Patient had lab work-up given her recent admission for severe anemia and patient somewhat of a poor historian. She does have a hemoglobin of 9.2 today which is better than when she left the hospital. Chemistries were unremarkable she does have some renal insufficiency which is improved compared to prior numbers. I did x-ray her femur and tib-fib and these were unremarkable. Etiology of patient's pain is unclear as it is not classic for sciatica as she describes more of the knee being the origin of the pain and then the pain radiates from there up her thigh and down her lower leg. Patient does not want crutches. I did give her [place] in the department. Patient will be given a prescription for few [place] for pain referral to primary care for follow-up. Etiology of her pain is unclear. Lab Data Attestation: I reviewed the patient's lab results. Labs: Laboratory Results - last 24 hr 09/17/22 09/17/22 05:14 05:14 WBC 8.9 RBC 3.84 L Hgb 9.2 L Hct 30.9 L MCV 80.5 L MCH 24.0 L MCHC 29.8 L D RDW Std Deviation 67.7 H RDW Coeff of Tobias 24.2 H Plt Count 502 H MPV 8.9 Immature Gran % (Auto) 0.600 Neut % (Auto) 68.1 Lymph % (Auto) 17.3 L [place] % (Auto) 10.7 H Eos % (Auto) 2.7 Baso % (Auto) 0.6 Absolute Neuts (auto) 6.1 Absolute Lymphs (auto) 1.54 Nucleated RBC % 0 Differential Comment SCANNED Anisocytosis 1+ Microcytosis 1+ Sodium 135 L Potassium 4.3 Chloride 107 Carbon Dioxide 20.0 L Anion Gap 8 BUN 30 H Creatinine 2.13 H Estim Creat Clear Calc 24.56 Est GFR (MDRD) Af Amer 31 L Est GFR (MDRD) Non-Af 25 L BUN/Creatinine Ratio 14.1 Glucose 86 Calcium 8.9 Troponin I High Sens 13 Radiography Diagnostic Testing: Clinical Impression(s) from Imaging Studies Femur X-Ray 09/17/22 05:27 IMPRESSION: No acute osseous abnormality. Electronically Signed: Feliz Kim MD at 6:02 EST Reading Location ID and State: [address] [place] [address] Tel , Service support , Tibia/Fibula X-Ray 09/17/22 05:27 IMPRESSION: No acute osseous abnormality. Electronically Signed: Feliz Kim MD at 6:01 EST Reading Location ID and State: [address] [place] [address] Tel , Service support , 2 view x-rays of left tib-fib obtained interpreted by myself as no fractures or acute lytic lesions. Radiology in agreement. 2 view x-rays of left femur obtained interpreted by myself as no acute fractures or lytic lesions and radiology in agreement. EKG Initial EKG: Attestation: I personally reviewed and interpreted this EKG as follows: Comments: Sinus rhythm with a ventricular rate of 76 bpm with no acute ST segment changes Discharge Plan Triage Chief Complaint: Lower Extremity Injury ED Provider: Sky Azevedo Dx/Rx/DC Orders Clinical Impression: Left leg pain Instructions: ED Pain, Acute, Uncertain Cause Prescriptions: New oxycodone 5 mg capsule 5 mg PO Q6H PRN (Reason: pain) 2 Days Qty: 10 0RF No Action pantoprazole 40 mg Tablet,Delayed Release (Dr/Ec) 40 mg PO BID 30 Days Qty: 60 0RF Primary Care Provider: Care Physician,No Primary Referrals: Zev Rodriguez MD [Med Staff - Clinical Account Liaison] - 3-5 Days Care Physician,No Primary [Primary Care Provider] - Disposition Disposition: Home, Self Care
[2022-09-17 05:19] LABS: Absolute Lymphocyte Count 1.54 X10^3/uL (0.83-4.51); Absolute Neutrophil Count 6.1 X10^3/uL (2.0-7.7); Basophil# 0.05 X10^3/uL; Basophil% 0.6 % (0-1); Eosinophil# 0.24 X10^3/uL; Eosinophils% 2.7 % (0-5); Hematocrit 30.9 % (37-47); Hemoglobin 9.2 g/dL (12.0-15.0); Lymphocyte # 1.54 X10^3/ul (0.83-4.51); Lymphocyte % 17.3 % (19-41); Mean Corp Hgb Conc 29.8 g/dL (32-36); Mean Corpuscular Volume 80.5 fL (81-99); Mean Platelet Vol. 8.9 fl (6.2-12.0); Monocyte# 0.95 X10^3/uL; Monocyte% 10.7 % (0-10); NRBC Flagged by Analyzer 0 % (0-5); Neutrophil # 6.09 X10^3/uL (2.7-7.7); Neutrophil % 68.1 % (47-70); POSITIVE MORPHOLOGY YES; Platelet Count 502 K/mm3 (150-450); RBC Distribution Width CV 24.2 % (11.6-14.6); RBC Distribution Width SD 67.7 fl (35.1-43.9); Red Blood Count 3.84 M/mm3 (4.2-5.4); White Blood Count 8.9 K/mm3 (4.4-11.0)
[2022-09-17 05:22] LABS: Differential Indicated SCAN CRITERIA MET
--- NOTE | 2022-09-17 05:27 | RAD_ITS ---
STUDY: X-RAY - LEFT FEMUR REASON FOR STUDY: Female, 57 years old. Pain. TECHNIQUE: 2 view(s) of the femur. COMPARISON: None. FINDINGS: No visible fracture. No osseous destruction. Alignment anatomic. Mild degenerative changes. Soft tissues unremarkable. RAD/Femur Min 2 Views IMPRESSION: No acute osseous abnormality. Electronically Signed: Feliz Kim MD at 6:02 EST Reading Location ID and State: [address] [place] Tel , Service support ,
--- NOTE | 2022-09-17 05:27 | RAD_ITS ---
STUDY: X-RAY - LEFT TIBIA AND FIBULA REASON FOR EXAM: Female, 57 years old. pain TECHNIQUE: 2 view(s) of the tibia and fibula were obtained. COMPARISON: None. FINDINGS: No visible fracture. No osseous destruction. Alignment anatomic. Mild degenerative changes. Soft tissues unremarkable. RAD/Tibia & Fibula 2 Views IMPRESSION: No acute osseous abnormality. Electronically Signed: Feliz Kim MD at 6:01 EST Reading Location ID and State: [facility] / [place] Tel , Service support ,
[2022-09-17] MEDS: oxyCODONE 5 MG Tablet PO (05:32)
[2022-09-17 05:38] LABS: Anion Gap 8 (5-15); BUN 30 mg/dL (7-18); BUN/Creat Ratio 14.1 RATIO (10-20); Calcium,Total 8.9 mg/dL (8.5-10.1); Chloride 107 mmol/L (98-107); Creatinine, Serum 2.13 mg/dL (0.55-1.02); EST Glomerular Filtration Rate 25 mL/min (>60); Est Glom Filt Rate - Afr Amer 31 mL/min (>60); Estimated Creatinine Clearance 24.56 ml/min; Glucose 86 mg/dL (74-106); Potassium 4.3 mmol/L (3.5-5.1); Sodium Level 135 mmol/L (136-145); Troponin-I HS 13 pg/mL (3.0-54.0)
[2022-09-17 05:58] LABS: Differential Comment SCANNED
[2022-09-17 05:59] LABS: Anisocytosis 1+; Microcytosis 1+
[2022-09-17 06:28] VITALS: BP 159/88; PULSE 85; RESP 15; O2SAT 98
== END 2022-09-17 07:05 | disposition home or self-care (01) ==
PROVIDERS: Emergency Provider Emergency Medicine; Visit Provider Emergency Medicine
DX: M79.605 Pain in left leg (principal); R53.1 Weakness; E78.5 Hyperlipidemia, unspecified; M25.562 Pain in left knee; D64.9 Anemia, unspecified; Z87.891 Personal history of nicotine dependence; N28.9 Disorder of kidney and ureter, unspecified; M79.652 Pain in left thigh
CPT/HCPCS: 73552; 73590; 80048; 84484; 85025; 93005; 99284

== ENCOUNTER 2022-09-18 01:10 | Emergency (ER) | payer MEDICARE, SELFPAY ==
[2022-09-18 01:11] VITALS: BP 161/95; PULSE 79; RESP 15; TEMP 36.3; O2SAT 99; BMI 24.3
--- NOTE | 2022-09-18 01:32 | EKG12_ITS ---
Test Reason : DYSRHYTHMIA Blood Pressure : / mmHG Vent. Rate : 071 BPM Atrial Rate : 071 BPM P-R Int : 174 ms QRS Dur : 096 ms QT Int : 420 ms P-R-T Axes : 061 000 027 degrees QTc Int : 456 ms Normal sinus rhythm Normal ECG Confirmed by FLYNN LICEA, AURORA ([id number]), restaurant expeditor VALENTE GARCIA ([id number]) on 09/22/2022 10:59:33 AM Referred By: RICHI Confirmed By:KIRK PRUETT MD
--- NOTE | 2022-09-18 01:32 | RAD_ITS ---
EXAM: XR CHEST, 1 VIEW CLINICAL INDICATION: chest pain. History of tuberous sclerosis and cystic lung disease. TECHNIQUE: Frontal view of the chest. This report was created using [employer] report generation technology. COMPARISON: 09/12/2022. FINDINGS: LUNGS AND PLEURAL SPACES: Cystic lung disease unchanged since previous exam. No pneumothorax. No effusion. HEART: Stable mild cardiomegaly. MEDIASTINUM: Central airways and mediastinal contour are unremarkable. BONES/JOINTS: Unremarkable. SOFT TISSUES: Unremarkable. RAD/Chest 1 View (Portable) IMPRESSION: 1. Stable mild cardiomegaly. 2. Cystic lung disease unchanged since previous exam. 3. No specific acute abnormality. No pneumothorax. Electronically Signed: Kamlesh Ballard MD at 2:33 EST ,
[2022-09-18] MEDS: 0.9% Normal Saline 1,000 ML 999 ML IV (01:44)
[2022-09-18] MEDS: Ondansetron 4 MG/2 ML Vial IV (01:44)
[2022-09-18 01:48] LABS: Absolute Lymphocyte Count 1.38 X10^3/uL (0.83-4.51); Absolute Neutrophil Count 5.2 X10^3/uL (2.0-7.7); Basophil# 0.05 X10^3/uL; Basophil% 0.6 % (0-1); Eosinophil# 0.34 X10^3/uL; Eosinophils% 4.3 % (0-5); Hematocrit 27.8 % (37-47); Hemoglobin 8.4 g/dL (12.0-15.0); Lymphocyte # 1.38 X10^3/ul (0.83-4.51); Lymphocyte % 17.5 % (19-41); Mean Corp Hgb Conc 30.2 g/dL (32-36); Mean Corpuscular Hgb 24.1 pg (27.0-32.0); Mean Corpuscular Volume 79.7 fL (81-99); Mean Platelet Vol. 8.9 fl (6.2-12.0); Monocyte# 0.82 X10^3/uL; Monocyte% 10.4 % (0-10); NRBC Flagged by Analyzer 0 % (0-5); Neutrophil # 5.23 X10^3/uL (2.7-7.7); Neutrophil % 66.6 % (47-70); POSITIVE MORPHOLOGY YES; Platelet Count 481 K/mm3 (150-450); RBC Distribution Width CV 24.2 % (11.6-14.6); RBC Distribution Width SD 67.6 fl (35.1-43.9); Red Blood Count 3.49 M/mm3 (4.2-5.4); White Blood Count 7.9 K/mm3 (4.4-11.0)
[2022-09-18 01:52] LABS: Differential Indicated SCAN CRITERIA MET
[2022-09-18 02:08] LABS: AST(SGOT) 11 U/L (15-37); Alanine Aminotransfer ALT/SGPT 10 U/L (13-56); Alkaline Phosphatase 73 U/L (45-117); Anion Gap 11 (5-15); BUN 35 mg/dL (7-18); BUN/Creat Ratio 13.8 RATIO (10-20); Bilirubin, Direct 0.08 mg/dL (0.00-0.30); Calcium,Total 8.6 mg/dL (8.5-10.1); Chloride 107 mmol/L (98-107); Creatinine, Serum 2.53 mg/dL (0.55-1.02); EST Glomerular Filtration Rate 21 mL/min (>60); Est Glom Filt Rate - Afr Amer 25 mL/min (>60); Estimated Creatinine Clearance 20.67 ml/min; Globulin 4.3 g/dL (2.2-4.2); Glucose 96 mg/dL (74-106); Lipase 373 U/L (73-393); Potassium 3.8 mmol/L (3.5-5.1); Protein, Total 7.3 g/dL (6.4-8.2); Sodium Level 136 mmol/L (136-145); Troponin-I HS 12 pg/mL (3.0-54.0)
[2022-09-18 02:46] LABS: Anisocytosis 1+; Differential Comment SCANNED; Microcytosis 1+
[2022-09-18 04:38] VITALS: BP 155/89; PULSE 87; RESP 22; O2SAT 96
--- NOTE | 2022-09-18 04:38 | EDS_ITS ---
HPI History of Present Illness Chief Complaint: Abd Pain Narrative Narrative: Patient is a 57-year-old female with history of tuberosclerosis and erosive esophagitis. She presents today with complaint of upper mid abdominal pain. She states that there has been no fevers or chills she denies any vomiting diarrhea dysuria or hematuria. She states that she had concerned this could be cardiac in nature based on the upper abdominal/lower chest discomfort and therefore comes to the hospital for evaluation [facility] Medical History (Updated 09/18/22 @ 07:[address] 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) Home Medications pantoprazole 40 mg tablet,delayed release 40 mg PO BID 30 days #60 tabs 09/15/22 [Rx Last Taken Unknown] oxycodone 5 mg capsule 5 mg PO Q6H PRN pain 2 days #10 caps 09/17/22 [Rx Last Taken Unknown] sucralfate 1 gram tablet (Carafate) 1 g PO BID #60 tabs 09/18/22 [Rx Last Taken Unknown] Allergy/AdvReac Type Severity Reaction Status Date / Time Influenza Virus Vaccines Allergy Anaphylaxis Verified 09/12/22 01:47 acetaminophen [From Tylenol] AdvReac Other Verified 09/12/22 01:47 naproxen sodium [From Aleve] AdvReac Other Verified 09/12/22 01:47 Family History Sister Cancer Sister Colon cancer Mother Colon cancer Surgical History History of left heart catheterization (09/04/16) Hx of appendectomy Social History Smoking Status: Former smoker how long ago did patient quit smokin years ago alcohol intake: current alcohol intake frequency: holidays/special occasions only substance use type: does not use caffeine: Yes Type: coffee Number of servings: 1 ROS ROS ED Constitutional Constitutional ED: Denies chills or fever(s) ENT ENT ED: Denies sore throat Cardiovascular Cardiovascular: Denies chest pain Respiratory/Chest Respiratory/Chest: Denies cough or dyspnea Gastrointestinal Gastrointestinal: Reports abdominal pain; Denies diarrhea, nausea or vomiting Genitourinary Genitourinary ED: Denies dysuria or hematuria Musculoskeletal Musculoskeletal: Denies myalgias Integumentary Denies rash Neurologic Neurologic: Denies headache(s) Hematologic/Lymphatic Hematologic/Lymphatic: Denies easy bleeding or easy bruising EXAM Physical Exam Const Vital Signs: 09/18/22 01:11 09/18/22 04:38 09/18/22 04:49 Temperature 97.3 F L Temperature Source Temporal Pulse Rate 79 87 80 Respiratory Rate 15 22 H 16 Blood Pressure 161/95 H 155/89 H 136/70 H Blood Pressure Mean 117 111 Pulse Ox 99 96 Oxygen Delivery Method Room Air Room Air Positive well nourished and well developed General Appearance ED: well developed HEENT Reports moist mucous membranes Eyes PERRL and EOMs intact bilaterally Neck supple Resp normal respiratory effort and clear to auscultation bilaterally Cardio regular rate and regular rhythm Rate: other Other Details: Radial pulses are plus 2 out of 4 bilaterally are equal and symmetric GI non-distended GI Narrative: Mild tenderness to palpation in the midepigastric region without voluntary guarding or rigidity. No pulsatile mass or fluid wave noted Auscultation: normoactive bowel sounds Palpation: soft Narrative: Rectal exam displays normal tone with brown stool that is Hemoccult negative Extremity normal to inspection Neuro oriented x3 and CN's II-XII intact bilaterally Sensorium / Orientation: alert Psych Psych Narrative: Patient has a flat affect Skin no rashes or lesions noted MDM MDM MDM Narrative Medical decision making narrative: Patient presented to the ER afebrile with a soft nonsurgical abdomen. She did not inform me that she has been to the hospital multiple times already in the month of September for similar complaints and been admitted and undergone further testing as well as an EGD. Once this information was realized I elected to only perform basic laboratory studies with chest x-ray. Labs reveal anemia which chart review reveals is chronic in nature as well as chronic kidney disease that is near her baseline as well. She did not have any elevation to her troponin and it is actually stable compared to the previous day and her EKG is sinus rhythm. She is already undergone an EGD and according to the chart refused a colonoscopy. Therefore at this time there is no signs of acute cardiac event she is not requiring a blood transfusion as her anemia is at baseline and she is not in acute kidney injury as her kidney function is always elevated. Therefore she was advised she needs to follow-up on an outpatient basis where there is no need for emergent intervention at this time and is otherwise safe for discharge Lab Data Attestation: I reviewed the patient's lab results. Labs: Laboratory Results - last 24 hr 09/18/22 09/18/22 01:45 01:45 WBC 7.9 RBC 3.49 L Hgb 8.4 L Hct 27.8 L MCV 79.7 L MCH 24.1 L MCHC 30.2 L RDW Std Deviation 67.6 H RDW Coeff of Tobias 24.2 H Plt Count 481 H MPV 8.9 Immature Gran % (Auto) 0.600 Neut % (Auto) 66.6 Lymph % (Auto) 17.5 L [place] % (Auto) 10.4 H Eos % (Auto) 4.3 Baso % (Auto) 0.6 Absolute Neuts (auto) 5.2 Absolute Lymphs (auto) 1.38 Nucleated RBC % 0 Differential Comment SCANNED Anisocytosis 1+ Microcytosis 1+ Sodium 136 Potassium 3.8 Chloride 107 Carbon Dioxide 18.0 L Anion Gap 11 BUN 35 H Creatinine 2.53 H Estim Creat Clear Calc 20.67 Est GFR (MDRD) Af Amer 25 L Est GFR (MDRD) Non-Af 21 L BUN/Creatinine Ratio 13.8 Glucose 96 Calcium 8.6 Total Bilirubin 0.30 Direct Bilirubin 0.08 AST 11 L ALT 10 L Alkaline Phosphatase 73 Troponin I High Sens 12 Total Protein 7.3 Albumin 3.0 L Globulin 4.3 H Lipase 373 Radiography Diagnostic Testing: Clinical Impression(s) from Imaging Studies Chest X-Ray 09/18/22 01:32 IMPRESSION: 1. Stable mild cardiomegaly. 2. Cystic lung disease unchanged since previous exam. 3. No specific acute abnormality. No pneumothorax. Electronically Signed: Kamlesh Ballard MD at 2:33 EST , Discharge Plan Triage Chief Complaint: Abd Pain ED Provider: Marlon Stratton Dx/Rx/DC Orders Clinical Impression: Erosive esophagitis, Tuberous sclerosis, Chronic kidney disease, Anemia, chronic disease Instructions: Esophagitis, ED Gastritis Ulcer No Abx Prescriptions: New sucralfate [Carafate] 1 gram tablet 1 g PO BID Qty: 60 0RF No Action pantoprazole 40 mg Tablet,Delayed Release (Dr/Ec) 40 mg PO BID 30 Days Qty: 60 0RF oxycodone 5 mg capsule 5 mg PO Q6H PRN (Reason: pain) 2 Days Qty: 10 0RF Primary Care Provider: Care Physician,No Primary Referrals: Friend,Harpreet, DO [Med Staff - Active Staff] - Care Physician,No Primary [Primary Care Provider] - Activity Restrictions/Additional Instructions: Continue your Protonix prescription and add the Carafate that was prescribed today for improved ulcer/gastritis control. Please follow-up with GI so you can get your outpatient colonoscopy and return to the ER should you have any further concerns Disposition Disposition: Home, Self Care Discharge Date/Time: 09/18/22 05:01
[2022-09-18 04:49] VITALS: BP 136/70; PULSE 80; RESP 16
== END 2022-09-18 05:01 | disposition home or self-care (01) ==
PROVIDERS: Emergency Provider Emergency Medicine; Visit Provider Emergency Medicine
DX: K20.80 Other esophagitis without bleeding (principal); Q85.1 Tuberous sclerosis; R10.9 Unspecified abdominal pain; Z87.891 Personal history of nicotine dependence; D63.8 Anemia in other chronic diseases classified elsewhere; Z80.0 Family history of malignant neoplasm of digestive organs; N18.9 Chronic kidney disease, unspecified; E78.5 Hyperlipidemia, unspecified
CPT/HCPCS: 71045; 80048; 80076; 82274; 83690; 84484; 85025; 93005; 96361; 96374; 96375; 99285; J7030; A4216; J2405

== ENCOUNTER 2022-09-19 03:06 | Emergency (ER) | payer MEDICARE, SELFPAY ==
[2022-09-19 03:08] VITALS: BP 154/96; PULSE 89; RESP 18; TEMP 36.5; O2SAT 98; BMI 29.2
[2022-09-19 03:15] VITALS: BP 154/96; PULSE 89; RESP 18; TEMP 36.5; O2SAT 98
--- NOTE | 2022-09-19 03:48 | EDS_ITS ---
HPI History of Present Illness HPI Narrative: Left leg gave out. Fell. Denies any injuries. Chief Complaint: Lower Extremity Injury Informant: patient Occured/Mechanism Comment: Fell at a bar. Onset/Context/Timing Onset: Today Associated Symptoms Associated Symptoms: Negative for Parasthesia, Weakness or Loss of Funtion Narrative Narrative: 57-year-old female with a history of tuberous sclerosis and erosive esophagitis. Tonight was an area bar. Said she was just standing there. Her left leg gave out and she fell. Denies any significant pain or injuries. No LOC. Denies any head injury. She was brought in to be evaluated. Nurses relate to me that this is her fourth ER visit this week. She denies recent illness. Denies any pain in her leg. States after the event she was up walking around. Prior similar symptoms: Yes Recent Illness/Hospitalization: No PFSH PFSH Medical History Acute znj-GI-abzlgiylj myocardial infarction (08/2016) Hyperlipidemia Seizures Septic shock (08/2016) Tuberous sclerosis (08/2016) Home Medications pantoprazole 40 mg tablet,delayed release 40 mg PO BID 30 days #60 tabs 09/15/22 [Rx Last Taken Unknown] oxycodone 5 mg capsule 5 mg PO Q6H PRN pain 2 days #10 caps 09/17/22 [Rx Last Taken Unknown] sucralfate 1 gram tablet (Carafate) 1 g PO BID #60 tabs 09/18/22 [Rx Last Taken Unknown] Allergy/AdvReac Type Severity Reaction Status Date / Time Influenza Virus Vaccines Allergy Anaphylaxis Verified 09/12/22 01:47 acetaminophen [From Tylenol] AdvReac Other Verified 09/12/22 01:47 naproxen sodium [From Aleve] AdvReac Other Verified 09/12/22 01:47 Family History Sister Cancer Sister Colon cancer Mother Colon cancer Surgical History History of left heart catheterization (09/04/16) Hx of appendectomy Social History Smoking Status: Current some day smoker tobacco type: cigarettes how long ago did patient quit smokin years ago alcohol intake: current alcohol intake frequency: holidays/special occasions only substance use type: does not use caffeine: Yes Type: coffee Number of servings: 1 ROS ROS ED ROS Narrative Denies recent illness. Review of Systems ROS Unobtainable: Denies due to encephalopathy Constitutional Constitutional ED: Denies chills or fever(s) Eyes Eyes: Denies blurry vision ENT ENT ED: Denies ear pain Cardiovascular Cardiovascular: Denies chest pain Respiratory/Chest Respiratory/Chest: Denies cough Gastrointestinal Gastrointestinal: Denies abdominal pain Genitourinary Genitourinary ED: Denies dysuria Musculoskeletal Musculoskeletal: Denies arthralgias Integumentary Denies abscess Neurologic Neurologic: Denies headache(s) Psychiatric Psychiatric: Denies anxiety Endocrine Endocrinology: Denies polydipsia Hematologic/Lymphatic Hematologic/Lymphatic: Denies easy bleeding Allergic/Immunologic Allergic/Immunologic ED: Denies mouth swelling or tongue swelling EXAM Physical Exam Narrative Exam Narrative: For 7 female no acute distress. Vital signs stable afebrile. H EENT exam unremarkable atraumatic. Nontender. Normal speech. Neck nontender. Back nontender. Lungs clear to auscultation bilaterally. Heart regular rhythm rate about 90 no murmur. Chest wall nontender. Ribs nontender. Abdomen soft nontender. Pelvic girdle intact. Moving all 4 extremities. Equal symmetrical groundskeeping yardman strength. Dorsi plantarflexion intact. Normal flexion-extension of both a nkles, knees and hips. No shortening or rotation. Nontender no deformity. Upper extremities are nontender. Neurologically she is awake and alert with no focal motor deficits. Exam benign. There is no reproducible signs of tenderness to any of her extremities. Const Vital Signs: 09/19/22 03:08 09/19/22 03:15 Temperature 97.7 F L 97.7 F L Temperature Source Temporal Temporal Pulse Rate 89 89 Respiratory Rate 18 18 Blood Pressure 154/96 H 154/96 H Blood Pressure Mean 115 115 Pulse Ox 98 98 Oxygen Delivery Method Room Air Room Air Positive well nourished and well developed; Negative for cachectic, contractures or unkempt General Appearance ED: well developed and NAD; Negative for unkempt, cachectic or contractures Nutritional Appearance: Negative for cachectic HEENT Reports moist mucous membranes normocephalic and atraumatic; Negative for tenderness Eyes PERRL General Eye ED: Negative for other Neck full ROM and supple Thyroid: Negative for tender Lymph Lymphatic: Negative for other Chest Wall inspection of chest normal and palpation of chest normal Chest: Negative for other Resp normal respiratory effort, no retractions and clear to auscultation bilaterally Effort and Inspection: Negative for pain with movement Auscultation: Negative for rales, rhonchi or wheezes Cardio regular rate, regular rhythm, S1 normal heart sound, S2 normal heart sound and no murmurs Rate: Negative for bradycardia or tachycardic Rhythm: Negative for abnormal rhythm Bruits: Negative for other GI non-tender, non-distended and no masses Inspection: Negative for abdominal distention Auscultation: normoactive bowel sounds Palpation: soft; Negative for tender or guarding Back/Spine no CVA tenderness General Back: Negative for CVA tenderness Cervical Spine: Negative for cervical spine tenderness Thoracic Spine / Upper Back: Negative for thoracic spinal tenderness Lumbar Spine / Lower Back: Negative for lumbar spinal tenderness Extremity normal to inspection and full ROM General Extremety ED: Negative for cyanosis or edema General Extremity: Negative for cyanosis or edema Neuro oriented x3, CN's II-XII intact bilaterally and moves all extremities Sensorium / Orientation: alert, oriented to person, oriented to place and oriented to time; Negative for orientation impaired, confused, lethargic or stuporous Motor Exam: strength 5/5 throughout Psych mental status grossly normal Appearance: Negative for unkempt Skin no wounds Lesions: no lesions Rashes: no rashes Trauma: Negative for abrasion, laceration or puncture MDM MDM MDM Narrative Medical decision making narrative: This is-year-old female reported was standing at a bar when her left leg gave out and she fell. Denies any injuries. States that her leg is giving out before. Her exam is benign. There is no signs of any tenderness. She is able to ambulate. Patient has had now for ER visits this week. There is concerned she may be homeless. Her exam is benign she is needs no imaging or further testing. I did review her labs from earlier this week. She has a history of chronic anemia and chronic renal insufficiency. Discharge Plan Triage Chief Complaint: Lower Extremity Injury ED Provider: Jak Arevalo Dx/Rx/DC Orders Clinical Impression: Fall, Tuberous sclerosis, Chronic kidney disease, Anemia, chronic disease Instructions: ED Fall with Uncertain Cause Prescriptions: No Action pantoprazole 40 mg Tablet,Delayed Release (Dr/Ec) 40 mg PO BID 30 Days Qty: 60 0RF oxycodone 5 mg capsule 5 mg PO Q6H PRN (Reason: pain) 2 Days Qty: 10 0RF sucralfate [Carafate] 1 gram tablet 1 g PO BID Qty: 60 0RF Primary Care Provider: Care Physician,No Primary Referrals: [facility] [Non-Staff] - As soon as possible Care Physician,No Primary [Primary Care Provider] - Activity Restrictions/Additional Instructions: Follow-up with your doctor or the [facility] if you do not have a primary care physician. Tylenol for any pain. Disposition Disposition: Home, Self Care
[2022-09-19 04:19] VITALS: BP 138/81; PULSE 98; RESP 16; O2SAT 94
== END 2022-09-19 05:06 | disposition home or self-care (01) ==
PROVIDERS: Emergency Provider Emergency Medicine; Visit Provider Emergency Medicine
DX: Z04.3 Encounter for examination and observation following other accident (principal); Q85.1 Tuberous sclerosis; N18.9 Chronic kidney disease, unspecified; D63.8 Anemia in other chronic diseases classified elsewhere; E78.5 Hyperlipidemia, unspecified; F17.210 Nicotine dependence, cigarettes, uncomplicated; I25.2 Old myocardial infarction
CPT/HCPCS: 99284

== ENCOUNTER → 2022-11-10 | Outpatient (CLI) | payer MEDICARE, SELFPAY ==
[2022-11-10 15:42] LABS: Absolute Lymphocyte Count 0.94 X10^3/uL (0.83-4.51); Absolute Neutrophil Count 3.5 X10^3/uL (2.0-7.7); Basophil# 0.07 X10^3/uL; Basophil% 1.3 % (0-1); Eosinophil# 0.28 X10^3/uL; Eosinophils% 5.1 % (0-5); Hematocrit 27.9 % (37-47); Hemoglobin 8.7 g/dL (12.0-15.0); Lymphocyte # 0.94 X10^3/ul (0.83-4.51); Lymphocyte % 17.1 % (19-41); Mean Corp Hgb Conc 31.2 g/dL (32-36); Mean Corpuscular Hgb 25.5 pg (27.0-32.0); Mean Corpuscular Volume 81.8 fL (81-99); Mean Platelet Vol. 8.1 fl (6.2-12.0); Monocyte# 0.67 X10^3/uL; Monocyte% 12.2 % (0-10); NRBC Flagged by Analyzer 0 % (0-5); Neutrophil # 3.53 X10^3/uL (2.7-7.7); Neutrophil % 64.1 % (47-70); Platelet Count 465 K/mm3 (150-450); RBC Distribution Width CV 18.9 % (11.6-14.6); RBC Distribution Width SD 58.4 fl (35.1-43.9); Red Blood Count 3.41 M/mm3 (4.2-5.4); White Blood Count 5.5 K/mm3 (4.4-11.0)
[2022-11-10 16:30] LABS: ALB/GLOB Ratio 0.7 RATIO (0.9-2.4); AST(SGOT) 17 U/L (15-37); Alanine Aminotransfer ALT/SGPT 15 U/L (13-56); Albumin, Serum 2.9 g/dL (3.2-5.0); Alkaline Phosphatase 71 U/L (45-117); Anion Gap 7 (5-15); BUN 41 mg/dL (7-18); BUN/Creat Ratio 19.2 RATIO (10-20); Calcium,Total 8.8 mg/dL (8.5-10.1); Chloride 110 mmol/L (98-107); Cholesterol 160 mg/dL (200); Creatinine, Serum 2.13 mg/dL (0.55-1.02); EST Glomerular Filtration Rate 25 mL/min (>60); Est Glom Filt Rate - Afr Amer 31 mL/min (>60); Globulin 4.3 g/dL (2.2-4.2); Glucose 92 mg/dL (74-106); High Density Lipoprotein 62 mg/dL; Potassium 4.5 mmol/L (3.5-5.1); Protein, Total 7.2 g/dL (6.4-8.2); Sodium Level 143 mmol/L (136-145); Triglycerides 72 mg/dL; Very Low Density Lipoprotein 14 mg/dL (5-40)
== END | disposition home or self-care (01) ==
LOC: LAB 15:19
PROVIDERS: Nurse Practitioner Gerontology; Visit Provider Nurse Practitioner Family
DX: D64.9 Anemia, unspecified (principal); I42.8 Other cardiomyopathies; E78.2 Mixed hyperlipidemia
CPT/HCPCS: 36415; 80053; 80061; 85025

== ENCOUNTER → 2022-11-23 | Outpatient (CLI) | payer MEDICARE, SELFPAY ==
--- NOTE | 2022-11-23 12:45 | ECHOD_ITS ---
Reason For Study: CMP Procedure This was a 2D Doppler, Color Flow transthoracic echocardiogram. The study was technically difficult. Contrast injection was performed. Exam performed in department. Left Ventricle Normal LV size. Mild concentric left ventricular hypertrophy. Left ventricular systolic function is normal. The estimated ejection fraction is 60 %. Stage 1 diastolic dysfunction. Mild hypokinesis of the apex is noted. Right Ventricle Normal RV size. Normal systolic function. Atria Normal left atrium. Normal right atrium. Mild collapse/invagination of the right atrium. Mitral Valve Normal mitral valve. Tricuspid Valve Normal tricuspid valve. Aortic Valve Trisinus/trileaflet aortic valve. Pericardium/Pleural Small pericardial effusion. Medication 22 gauge I.V. with prn adaptor inserted into right arm. Diluted definity 2.5ml given slow IV push to enhance endocardial definition. MMode/2D Measurements & Calculations LVIDd: 4.9 cm IVSd: 1.3 cm Ao root diam: 3.5 cm LVIDs: 3.5 cm LVPWd: 1.2 cm FS: 28.1 % LAV(MOD-sp4): 36.1 ml LVAd ap4: 28.6 cm2 SV(MOD-sp4): 54.8 ml LVLd ap4: 7.6 cm EDV(MOD-sp4): 88.9 ml EDV(sp4-el): 92.0 ml LVAs ap4: 15.8 cm2 LVLs ap4: 6.0 cm ESV(MOD-sp4): 34.1 ml ESV(sp4-el): 35.7 ml EF(MOD-sp4): 61.6 % EF(sp4-el): 61.2 % SV(sp4-el): 56.3 ml LA dimension(2D): 4.3 cm LA A4 area: 13.8 cm2 RA A4 area: 11.8 cm2 Time Measurements MV dec time: 0.13 sec Doppler Measurements & Calculations MV E max tonio: 53.5 cm/sec Lat Peak E' Tonio: 6.1 cm/sec Med Peak E' Tonio: 7.4 cm/sec MV A max tonio: 83.7 cm/sec E/E' lat: 8.8 E/E' med: 7.2 MV E/A: 0.64 MV V2 max: 94.2 cm/sec Ao V2 max: 156.8 cm/sec MV max P.6 mmHg MV dec slope: 414.8 cm/sec2 Ao max P.9 mmHg MV V2 mean: 64.3 cm/sec Ao V2 mean: 113.2 cm/sec MV mean P.8 mmHg Ao mean P.8 mmHg MV V2 VTI: 19.7 cm Ao V2 VTI: 26.1 cm AV (velocity ratio): 0.89 LV V1 max: 133.6 cm/sec PA V2 max: 117.7 cm/sec LV V1 max P.1 mmHg PA V2 mean: 86.4 cm/sec LV V1 mean P.0 mmHg LV V1 mean: 93.4 cm/sec LV V1 VTI: 23.2 cm ECHO/Echo Complete W/ Contrast Interpretation Summary Normal LV size. Mild concentric left ventricular hypertrophy. Left ventricular systolic function is normal. The estimated ejection fraction is 60 %. Stage 1 diastolic dysfunction. Mild hypokinesis of the apex is noted Contrast injection was performed. Ordering Physician: Noreen Devine Referring Physician: Noreen Devine Performed By: Adamaris Ferraro RCS
== END | disposition home or self-care (01) ==
PROVIDERS: Referring Provider Nurse Practitioner Gerontology; Visit Provider Nurse Practitioner Gerontology
DX: I31.39 Other pericardial effusion (noninflammatory) (principal)
CPT/HCPCS: 93306; Q9957; A4216; C8929

== ENCOUNTER 2024-01-30 03:37 | Emergency (ER) | payer MEDICARE, SELFPAY ==
[2024-01-30 03:38] VITALS: PULSE 91; RESP 16; TEMP 36.7; O2SAT 95; BMI 28.0
[2024-01-30 03:42] VITALS: BP 163/92
--- NOTE | 2024-01-30 04:07 | ED.VIS.LOWEX ---
HPI History of Present Illness Chief Complaint: Lower Extremity Injury Informant: patient Narrative Narrative: Bilateral feet pain prior to arrival walking out in the cold. Left greater than right. No paresthesias. No diabetes history. No trauma. This has happened before with the cold weather per patient. Reports history of epilepsy not on any current medications. Allergies to naproxen however is taken Advil in the past. Prior similar symptoms: Yes PFSH PFSH Medical History Acute xny-ZP-qplzobbte myocardial infarction (08/2016) Hyperlipidemia Non-ischemic cardiomyopathy Seizures Septic shock (08/2016) Tuberous sclerosis (08/2016) Home Medications pantoprazole 40 mg tablet,delayed release 40 mg PO BID 30 days #60 tabs 09/15/22 [Rx Last Taken Unknown] oxycodone 5 mg capsule 5 mg PO Q6H PRN pain 2 days #10 caps 09/17/22 [Rx Last Taken Unknown] sucralfate 1 gram tablet (Carafate) 1 g PO BID #60 tabs 09/18/22 [Rx Last Taken Unknown] ibuprofen 200 mg tablet (Advil) 200 mg PO Q6H PRN 11/10/22 [History Last Taken Unknown] multivitamin 1 tab PO DAILY 11/10/22 [History Last Taken Unknown] ibuprofen 600 mg tablet 600 mg PO Q6H PRN PRN pain #20 TABLETS 01/30/24 [Rx Last Taken Unknown] Allergy/AdvReac Type Severity Reaction Status Date / Time Influenza Virus Vaccines Allergy Anaphylaxis Verified 11/10/22 14:51 acetaminophen [From Tylenol] AdvReac Other Verified 11/10/22 14:51 naproxen sodium [From Aleve] AdvReac Other Verified 11/10/22 14:51 Family History Sister Cancer Sister Colon cancer Mother Colon cancer Surgical History History of left heart catheterization (09/04/16) Hx of appendectomy Social History Smoking Status: Current some day smoker tobacco type: cigarettes how long ago did patient quit smokin years ago alcohol intake: current alcohol intake frequency: holidays/special occasions only substance use type: does not use caffeine: Yes Type: coffee Number of servings: 1 ROS ROS ED Constitutional Constitutional ED: Denies chills, fever(s) or sweats Eyes Eyes: Denies change in vision ENT ENT ED: Denies dysphagia or sore throat Cardiovascular Cardiovascular: Denies chest pain, leg edema, palpitations or racing heartbeat Respiratory/Chest Respiratory/Chest: Denies cough, dyspnea or dyspnea on exertion Gastrointestinal Gastrointestinal: Denies abdominal pain, diarrhea, nausea or vomiting Genitourinary Genitourinary ED: Denies dysuria, hematuria or urinary frequency Musculoskeletal Musculoskeletal: Reports extremity pain and other Details: Feet pain ; Denies back pain or neck pain Integumentary Denies rash or wounds Neurologic Neurologic: Denies headache(s), paresthesias or weakness EXAM Physical Exam Const Vital Signs: 01/30/24 03:38 01/30/24 03:42 01/30/24 05:45 Temperature 98.1 F 98.1 F Temperature Source Temporal Pulse Rate 91 84 Respiratory Rate 16 16 Blood Pressure 163/92 H 152/98 H Blood Pressure Mean 115 116 Pulse Ox 95 92 Positive well nourished and well developed General Appearance ED: well developed and NAD HEENT Reports moist mucous membranes normocephalic and atraumatic Eyes PERRL, EOMs intact bilaterally and conjunctivae normal General Eye ED: Yes normal appearance of both eyes Neck no lymphadenopathy and supple General: Negative for tenderness Chest Wall Chest: Negative for tenderness Resp normal respiratory effort and normal air movement Effort and Inspection: symmetric chest movement; Negative for respiratory distress Cardio regular rate, regular rhythm and no murmurs Peripheral Pulses: pulses 2+ throughout GI normal to inspection, nondistended, normoactive bowel sounds and non-tender Palpation: Negative for guarding or rebound tenderness present Back/Spine no CVA tenderness and no thoracic nor lumbar tenderness Extremity normal to inspection Extremity Narrative: Bilateral lower extremity: No erythema soft compartments of the thighs and calfs. There is mild swelling of the left foot. Skin intact. Strong symmetric DP pulses bilaterally. No erythema of the feet or toes. General Extremety ED: Negative for edema or tenderness General Extremity: Negative for edema Neuro oriented x3 and no sensory deficits noted Sensorium / Orientation: awake and alert Skin no rashes or lesions noted and no wounds MDM MDM MDM Narrative Medical decision making narrative: Interventions / MDM: Differential diagnosis: Feet pain Diagnosis considered but do not suspect: No clinical cellulitis, no clinical DVT. No clinical arterial thrombus. My EKG interpretation: N/A Imaging independently reviewed and interpreted by myself: N/A External documents reviewed: N/A Test considered but not ordered:N/A ED course: Patient bilateral feet pain left greater than right. No signs of infection. Pulses were intact. Patient ordered ibuprofen. 0525: Symptoms improving. Discussed will continue NSAIDs prescription sent to her pharmacy. Outpatient follow-up. All questions were answered. Re-evaluation: stable Disposition discussed with patient/family/significant other: Patient Case discussed with consulting clinician: N/A This note was generated with [employer] dictation software. It may contain incorrect words, spelling, and punctuation that were not noted in checking the note before signing. Discharge Plan Triage Chief Complaint: Lower Extremity Injury ED Provider: Jean Carlos Antonio Dx/Rx/DC Orders Clinical Impression: Pain in both feet Instructions: ED Pain, Acute, Uncertain Cause Prescriptions: New ibuprofen 600 mg tablet 600 mg PO Q6H PRN PRN (Reason: pain) Qty: 20 0RF No Action ibuprofen [Advil] 200 mg tablet 200 mg PO Q6H PRN multivitamin Tablet 1 tab PO DAILY pantoprazole 40 mg Tablet,Delayed Release (Dr/Ec) 40 mg PO BID 30 Days Qty: 60 0RF oxycodone 5 mg capsule 5 mg PO Q6H PRN (Reason: pain) 2 Days Qty: 10 0RF sucralfate [Carafate] 1 gram tablet 1 g PO BID Qty: 60 0RF Primary Care Provider: Care Physician,No Primary Referrals: [facility] [Non-Staff] - 1 Week if not improving Care Physician,No Primary [Primary Care Provider] - Disposition Disposition: Home, Self Care Discharge Date/Time: 01/30/24 05:47
[2024-01-30] MEDS: Ibuprofen 600 MG Tablet PO (04:16)
[2024-01-30 05:45] VITALS: BP 152/98; PULSE 84; RESP 16; TEMP 36.7; O2SAT 92
== END 2024-01-30 05:47 | disposition home or self-care (01) ==
PROVIDERS: Emergency Provider Emergency Medicine; Visit Provider Emergency Medicine
DX: M79.671 Pain in right foot (principal); M79.672 Pain in left foot; I25.2 Old myocardial infarction; E78.5 Hyperlipidemia, unspecified; Z90.49 Acquired absence of other specified parts of digestive tract; F17.210 Nicotine dependence, cigarettes, uncomplicated; X31.XXXA Exposure to excessive natural cold, initial encounter; Y93.01 Activity, walking, marching and hiking
CPT/HCPCS: 99282

== ENCOUNTER 2024-05-26 08:46 | Emergency (ER) | payer MEDICARE, SELFPAY ==
[2024-05-26 08:47] VITALS: BP 149/97; PULSE 101; RESP 18; TEMP 36.6; O2SAT 96; BMI 21.7
--- NOTE | 2024-05-26 09:05 | RAD_ITS ---
STUDY: X-RAY - RIGHT SHOULDER REASON FOR EXAM: Female, 58 years old. RIGHT SHOULDER PAIN TECHNIQUE: 2 views of the great shoulder. COMPARISON: None. FINDINGS: Normal glenohumeral articulation. There is mild acromioclavicular arthrosis. Normal acromion. Normal humeral head and visualized proximal humerus. The soft tissue structures are unremarkable. There is no demonstrated fracture. Normal visualized pulmonary apex. RAD/Shoulder min 2 Views IMPRESSION: Mild acromioclavicular arthrosis. Electronically Signed: Александр Hansen MD at 9:33 EDT ,
--- NOTE | 2024-05-26 10:20 | EX.ED.DYSGE1 ---
HPI History of Present Illness Chief Complaint: Weakness Detail of Chief Complaint: Complaint to me is right shoulder pain. She denied weakness and see HPI na Informant: patient Onset/Context/Timing Onset: Today (Because she slept on it wrong) Context: Sudden Onset Timing: Continuous Quality: Pain Location: Right shoulder Current Severity: Mild Maximum Severity: Severe (When I passively try to move it and when she attempts to move it) Worsened by: Use Relieved by: Nothing Associated Symptoms Associated Symptoms: Nothing Narrative Narrative: Patient is a 58-year-old oijya-mzuo-akunzoyj woman. She complains of right shoulder pain. There is no history of trauma. She states because she slept on it wrong. She was staying [place] [employer]. She was told she can no longer stay there. She stated she wanted to come in to be checked. Apparently she asked for food and a blanket when EMS arrived. They reported she was not cooperative. Patient states she is . She is homeless. She then stated a friend would help get a hotel room for them. She denies headache. She denies double vision blurred vision loss of vision. No trouble speech or swallowing. She denies paresthesia, anesthesia motors upper or lower extremity. She denies cardiac symptoms i.e. orthopnea, PND, dyspnea on exertion. She denies shortness of breath, cough. She denies abdominal pain, nausea, vomiting or diarrhea. She denies dysuria, frequency, urgency or hematuria. Prior similar symptoms: No Recent Illness/Hospitalization: No [facility] Medical History Septic shock (08/2016) Tuberous sclerosis (08/2016) Non-ischemic cardiomyopathy Seizures Acute ugj-FI-whewyvhiv myocardial infarction (08/2016) Hyperlipidemia Home Medications ?Medication ?Instructions ?Recorded ?Last Taken ?Type pantoprazole 40 mg tablet,delayed 40 mg PO BID 30 days #60 tabs 09/15/22 Unknown Rx release oxycodone 5 mg capsule 5 mg PO Q6H PRN pain 2 days #10 09/17/22 Unknown Rx caps sucralfate 1 gram tablet (Carafate) 1 g PO BID #60 tabs 09/18/22 Unknown Rx ibuprofen 200 mg tablet (Advil) 200 mg PO Q6H PRN 11/10/22 Unknown History multivitamin 1 tab PO DAILY 11/10/22 Unknown History ibuprofen 600 mg tablet 600 mg PO Q6H PRN PRN pain #20 01/30/24 Unknown Rx TABLETS Allergy/AdvReac Type Severity Reaction Status Date / Time Influenza Virus Vaccines Allergy Anaphylaxis Verified 11/10/22 14:51 acetaminophen (From Tylenol) AdvReac Other Verified 11/10/22 14:51 naproxen sodium (From Aleve) AdvReac Other Verified 11/10/22 14:51 Family History Sister Cancer Sister Colon cancer Mother Colon cancer Surgical History History of left heart catheterization (09/04/16) Hx of appendectomy Social History Smoking Status: Current some day smoker tobacco type: cigarettes how long ago did patient quit smokin years ago alcohol intake: current alcohol intake frequency: holidays/special occasions only substance use type: does not use caffeine: Yes Type: coffee Number of servings: 1 ROS ROS ED Constitutional Constitutional ED: Denies chills, fever(s), subjective or sweats Eyes Eyes: Denies blurry vision, change in vision or diplopia ENT ENT ED: Denies ear pain, rhinorrhea or sore throat Cardiovascular Cardiovascular: Denies chest pain or palpitations Respiratory/Chest Respiratory/Chest: Denies cough, dyspnea or dyspnea on exertion Gastrointestinal Gastrointestinal: Denies abdominal pain, diarrhea, nausea or vomiting Genitourinary Genitourinary ED: Denies dysuria, hematuria or urinary frequency Musculoskeletal Musculoskeletal: Reports other Details: Per HPI narrative ; Denies back pain or neck pain Integumentary Denies rash Neurologic Neurologic: Reports weakness; Denies headache(s) or paresthesias Psychiatric Psychiatric: Denies anxiety or depression Hematologic/Lymphatic Hematologic/Lymphatic: Reports systems reviewed and no addt'l complaints, except as documented EXAM Physical Exam Const Vital Signs: 05/26/24 08:47 05/26/24 08:47 Temperature 97.8 F Temperature Source Temporal Pulse Rate 101 H Respiratory Rate 18 Respiratory Effort Normal Respiratory Pattern Normal Blood Pressure 149/97 H Blood Pressure Mean 114 Pulse Ox 96 Oxygen Delivery Method Room Air Positive well developed and unkempt General Appearance ED: unkempt, well developed and NAD; Negative for cyanotic or diaphoretic HEENT Reports moist mucous membranes HEENT Narrative: Poor dentition. Ears normal. Nares patent. Posterior pharynx is normal. Eyes PERRL and EOMs intact bilaterally General Eye ED: Negative for pale conjunctiva or scleral icterus Neck no lymphadenopathy, supple and no JVD Chest Wall inspection of chest normal and palpation of chest normal Resp normal respiratory effort and clear to auscultation bilaterally Cardio regular rate, regular rhythm, S1 normal heart sound, S2 normal heart sound and no murmurs GI normal to inspection, nondistended, normoactive bowel sounds, non-tender, non-distended and no masses; Negative for hepatosplenomegaly Back/Spine no CVA tenderness Cervical Spine: Negative for cervical spine tenderness Thoracic Spine / Upper Back: Negative for thoracic spinal tenderness Lumbar Spine / Lower Back: Negative for lumbar spinal tenderness Extremity normal to inspection General Extremety ED: Negative for edema General Extremity: Negative for edema Neuro oriented x3, CN's II-XII intact bilaterally and no sensory deficits noted Sensorium / Orientation: alert Motor Exam: strength 5/5 throughout Psych Psych Narrative: Affect is flat. Appearance: unkempt Skin Skin Narrative: There is no bruising noted. MDM MDM MDM Narrative Medical decision making narrative: Patient resistant when I attempted to move her arm. She may be malingering. Will obtain x-ray to determine if there is any pathology to explain her pain. Radiography Chest X-Ray - ED: Read by ED Physician (2 views of the shoulder were obtained. The x-ray was entirely reviewed interpreted by me as negative for fracture, subluxation dislocation or even any arthritic changes.) Treatment and Re-Evaluation :: Plan is discharge to home. Patient is homeless. She states she is able to stay at a hotel. Discharge Plan Triage Chief Complaint: Weakness ED Provider: Darien Contreras Dx/Rx/DC Orders Clinical Impression: Acute pain of right shoulder, Non-ischemic cardiomyopathy, Non-rheumatic mitral valve disease, Hyperlipidemia, Homeless Instructions: ED Shoulder Pain, Uncertain Cause Prescriptions: No Action ibuprofen [Advil] 200 mg tablet 200 mg PO Q6H PRN multivitamin Tablet 1 tab PO DAILY pantoprazole 40 mg Tablet,Delayed Release (Dr/Ec) 40 mg PO BID 30 Days Qty: 60 0RF oxycodone 5 mg capsule 5 mg PO Q6H PRN (Reason: pain) 2 Days Qty: 10 0RF sucralfate [Carafate] 1 gram tablet 1 g PO BID Qty: 60 0RF ibuprofen 600 mg tablet 600 mg PO Q6H PRN PRN (Reason: pain) Qty: 20 0RF Primary Care Provider: Care Physician,No Primary Referrals: Care Physician,No Primary [Primary Care Provider] - Activity Restrictions/Additional Instructions: Follow-up with your doctor as needed. The name of your doctors on the insurance card issued to you by [facility] With your history of esophagitis recommend Tylenol for pain. Print Language: Citizen Of [place] Disposition Disposition: Home, Self Care
[2024-05-26 10:37] VITALS: BP 117/68; PULSE 72; RESP 18; TEMP 36.7; O2SAT 95
== END 2024-05-26 10:38 | disposition home or self-care (01) ==
PROVIDERS: Emergency Provider Emergency Medicine; Visit Provider Emergency Medicine
DX: M25.511 Pain in right shoulder (principal); I42.8 Other cardiomyopathies; I34.9 Nonrheumatic mitral valve disorder, unspecified; Z59.00 Homelessness unspecified; E78.5 Hyperlipidemia, unspecified; I25.2 Old myocardial infarction; Z90.49 Acquired absence of other specified parts of digestive tract; F17.210 Nicotine dependence, cigarettes, uncomplicated; X58.XXXA Exposure to other specified factors, initial encounter
CPT/HCPCS: 73030; 99282

== ENCOUNTER 2024-05-28 14:19 | Emergency (ER) | payer MEDICARE, SELFPAY ==
[2024-05-28 14:21] VITALS: BP 146/79; PULSE 88; RESP 18; TEMP 36.4; O2SAT 97; BMI 21.9
--- NOTE | 2024-05-28 14:46 | EDS_ITS ---
<Statement entered by Mario Doherty DO - 05/28/24 17:55> Patient was seen and examined with Antonio noel All components of the history and physical confirmed and agreed. History of present illness and physical exam: Patient is a 58-year-old female past medical history of homelessness, chronic pain, arthritis who presents to the emergency department with a chief complaint of knee pain and shoulder pain and this is her multiple visits in the last several days. Patient states that she slept on her shoulder wrong causing her to have right shoulder pain. She states that she did have x-rays obtained of the shoulder few days ago. Patient states that her right knee is bothering more and states that this becomes more painful when the weather changes and is raining outside. States that she has not take anything for pain control prior to coming here. She states that she has been urinating normally for herself. Review of systems: Agree with above Physical exam General: Patient was lying in bed rest comfortably did not appear to be acute distress Head: Atraumatic, normocephalic Eyes: PERRL bilaterally, EOMI bilateral, no conjunctival injection noted Neck: Soft, supple, trach midline Cardiovascular: Regular rate and rhythm no murmurs gallops rubs noted Respiratory: Clear to auscultation bilaterally no rales rhonchi wheeze noted Abdomen: Soft, nondistended, nontender to palpation, bowel sounds present x 4 Extremities: +4/5 strength noted in the bilateral upper and lower extremities, no pedal edema on exam, DP pulses +2/4 in the bilateral lower extremities, radial pulses +2/4 in the bilateral upper extremities Musculoskeletal: Patient has pain with attempted range of motion of her right shoulder and has some pain to palpation of her right knee. Although bony prominences palpated no pain elicited Neurological: Patient following commands and that she as well as her hospital year is 2023. NIH of 0 GCS 15 sensation grossly intact no saddle anesthesia noted Skin: Warm, dry, intact My exam shows MDM Patient is a 58-year-old female who presented to the emerged part with chief complaint of right shoulder pain and right knee pain. Patient just had an x-ray obtained of her right shoulder that was unremarkable no acute fracture dislocations. Did show some arthritis. Patient had x-ray of her right knee was given Toradol. On the differential diagnose includes but limited to osteoarthritis, fracture, dislocation, musculoskeletal strain. Once workup is obtained reviewed she will be reevaluated. Patient's x-ray reviewed showed degenerative arthrosis no acute fractures. Patient was given a walker for home as she is homeless she was given prescription for naproxen and instructed to not take this on empty stomach. Patient was encouraged return with worsening symptoms or any other concerns. She was agreeable to plan would like to go home at this point time all question concerns answered discharged in stable condition. Patient was encouraged to follow-up with her primary care physician outpatient setting. Plan: Final impression: Right shoulder and right knee pain Disposition: Patient will be discharged home in stable condition Supervising attending attestation: Mario KIM History of Present Illness Chief Complaint: Other, Pain/Inj Narrative Narrative: Patient is a 58-year-old female with history of homelessness, chronic pain, arthritis who presents to the emergency department for the third time in the last 3 days for chronic pain. Patient states that she does have a shoulder pain which was from sleeping ROM a couple days ago. Patient did have x-rays of this 2 days ago. Patient states today, her right knee is bothering her more, is more swollen. She states that is worse because it is raining out. Per the EMS, the patient is sometimes not cooperative, sometimes not leave and does loiter. Patient denies any other new trauma. 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) Non-ischemic cardiomyopathy Seizures Acute bil-JK-ojuvilsrt myocardial infarction (08/2016) Hyperlipidemia Home Medications ?Medication ?Instructions ?Recorded ?Last Taken ?Type ibuprofen 200 mg tablet (Advil) 200 mg PO Q6H PRN fever or pain 11/10/22 Unknown History multivitamin 1 tab PO DAILY 11/10/22 Unknown History ibuprofen 600 mg tablet 600 mg PO Q6H PRN PRN pain #20 01/30/24 Unknown Rx TABLETS naproxen 500 mg tablet (Naprosyn) 500 mg PO BID PRN pain #20 tabs 05/28/24 Unkn own Rx Allergy/AdvReac Type Severity Reaction Status Date / Time Influenza Virus Vaccines Allergy Anaphylaxis Verified 05/28/24 14:21 acetaminophen (From Tylenol) AdvReac Other Verified 05/28/24 14:21
--- NOTE | 2024-05-28 14:46 | EX.ED.DYSGE1 ---
HPI History of Present Illness Chief Complaint: Other, Pain/Inj Narrative Narrative: Patient is a 58-year-old female with history of homelessness, chronic pain, arthritis who presents to the emergency department for the third time in the last 3 days for chronic pain. Patient states that she does have a shoulder pain which was from sleeping ROM a couple days ago. Patient did have x-rays of this 2 days ago. Patient states today, her right knee is bothering her more, is more swollen. She states that is worse because it is raining out. Per the EMS, the patient is sometimes not cooperative, sometimes not leave and does loiter. Patient denies any other new trauma. 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) Non-ischemic cardiomyopathy Seizures Acute qso-TY-gcnabevds myocardial infarction (08/2016) Hyperlipidemia Home Medications ?Medication ?Instructions ?Recorded ?Last Taken ?Type ibuprofen 200 mg tablet (Advil) 200 mg PO Q6H PRN fever or pain 11/10/22 Unknown History multivitamin 1 tab PO DAILY 11/10/22 Unknown History ibuprofen 600 mg tablet 600 mg PO Q6H PRN PRN pain #20 01/30/24 Unknown Rx TABLETS naproxen 500 mg tablet (Naprosyn) 500 mg PO BID PRN pain #20 tabs 05/28/24 Unknown Rx Allergy/AdvReac Type Severity Reaction Status Date / Time Influenza Virus Vaccines Allergy Anaphylaxis Verified 05/28/24 14:21 acetaminophen (From Tylenol) AdvReac Other Verified 05/28/24 14:21 naproxen sodium (From Aleve) AdvReac Other Verified 05/28/24 14:21 Family History Sister Cancer Sister Colon cancer Mother Colon cancer Surgical History History of left heart catheterization (09/04/16) Hx of appendectomy Social History Smoking Status: Current some day smoker tobacco type: cigarettes how long ago did patient quit smokin years ago alcohol intake: current alcohol intake frequency: holidays/special occasions only substance use type: does not use caffeine: Yes Type: coffee Number of servings: 1 ROS ROS ED ROS Narrative Constitutional: Negative for fever, chills, weight loss, weakness Eyes: Negative for vision loss, vision change, double vision ENT: Negative for any sore throat, ear pain, congestion Cardiovascular: Negative for any chest pain, tightness, palpitations Respiratory: Negative for any cough, sputum production, hemoptysis, dyspnea, dyspnea on exertion, orthopnea Gastrointestinal: Negative for any abdominal pain, nausea, vomiting, diarrhea, constipation, blood in stool, blood in vomit : Negative for any urinary frequency, dysuria, retention, blood in urine Muscle skeletal: Negative for any neck pain, back pain. Positive right knee pain, right shoulder pain Neurological: Negative for any headache, syncope, dizziness Skin: Negative for any rashes, itching, abrasions, lacerations Psychiatric: Negative for any depression, anxiety, stress, suicidal ideation, homicidal ideation Hematologic: Negative for any excessive bruising, easy bleeding EXAM Physical Exam Narrative Exam Narrative: Vital signs reviewed. HEET: Head normocephalic atraumatic, TMs clear bilaterally. Posterior pharynx is clear, moist mucous membranes. Nares clear bilaterally. Neck: Supple with no lymphadenopathy or tenderness. No signs of meningismus. Cardiac: Regular rate and rhythm no murmurs gallops or rubs, equal peripheral pulses bilaterally. Respiratory: Lungs clear to auscultation bilaterally. No chest tenderness. Abdomen: Soft, nontender, nondistended. No abdominal bruit or pulsatile masses. No hepatosplenomegaly Extremities: Patient does have slight edema to the right knee, there is no evidence of any erythema or ecchymosis. She does have an intact extensor mechanism however it is painful. Able to flex and extend. Pain on palpation. Mostly to the distal patella. Patient does have pain to the right shoulder worse with movement. There is no deformity noted. Neuro: Cranial nerves II through XII intact, no focal neurological deficits. Skin: Clean dry and intact with no rash, purpura, petechiae, vesicles or pustules. Backs/flank: No CVA tenderness, no midline spinal tenderness, no deformity. Psych: Normal mood and affect. No SI, HI or acute psychosis. Const Vital Signs: 05/28/24 14:21 05/28/24 14:32 Temperature 97.6 F L Temperature Source Oral Pulse Rate 88 Respiratory Rate 18 Respiratory Pattern Normal Blood Pressure 146/79 H Blood Pressure Mean 101 Pulse Ox 97 Positive unkempt General Appearance ED: unkempt Psych Appearance: unkempt [facility] MDM Radiography Diagnostic Testing: Clinical Impression(s) from Imaging Studies Knee X-Ray 05/28/24 14:54 IMPRESSION: Degenerative arthrosis. Electronically Signed: Jorge Alberto Aparicio MD at 15:26 EDT Reading Location ID and State: [facility] / [place] , Service support , Treatment and Re-Evaluation :: Differential diagnosis includes however is not limited to: Shoulder arthritis, shoulder dislocation, knee strain, acute on chronic knee pain, knee joint effusion, patellar fracture, arthritis Patient appears to be in no obvious respiratory distress vital signs are stable, patient is nontoxic-appearing. Presenting to the emergency department with complaints of right knee pain, right shoulder pain. Has been seen for these previously. Patient is homeless, and has been here the last 3 days. Patient did have an x-ray of the right shoulder that was showing arthritis however no acute process. I will not repeat that today. Patient will receive an x-ray of the right knee. Given IM Toradol. Patient was made aware that once these x-rays are normal, she will have to be discharged home. Patient's x-ray of the right knee shows degenerative arthrosis, no acute fracture. Patient is homeless and does have to walk quite a long way. Patient will be given a walker for home. She begin a prescription for naproxen. She is instructed return for any worsening symptoms. Discharge Plan Triage Chief Complaint: Other, Pain/Inj ED Midlevel Provider: Antonio Land ED Provider: Mario Doherty Dx/Rx/DC Orders Clinical Impression: Acute knee pain, Arthritis Instructions: ED Arthralgia Prescriptions: New naproxen [Naprosyn] 500 mg tablet 500 mg PO BID PRN (Reason: pain) Qty: 20 0RF No Action ibuprofen [Advil] 200 mg tablet 200 mg PO Q6H PRN (Reason: fever or pain) multivitamin Tablet 1 tab PO DAILY ibuprofen 600 mg tablet 600 mg PO Q6H PRN PRN (Reason: pain) Qty: 20 0RF Primary Care Provider: Care PhysicianWinsome Primary Referrals: Care Physician,No Primary [Primary Care Provider] - Activity Restrictions/Additional Instructions: Please follow-up outpatient. Return for any worsening symptoms. Print Language: Ukrainian Disposition Disposition: Home, Self Care
[2024-05-28] MEDS: Ketorolac 30 MG/ML Syringe IM (14:50)
--- NOTE | 2024-05-28 14:54 | RAD_ITS ---
STUDY: XR Knee Complete 4 Views or More 05/28/2024 3:24 PM REASON FOR EXAM: Female, 58 years old. knee pain TECHNIQUE: XR Knee Complete 4 Views RIGHT COMPARISON: None FINDINGS: Normal visualized distal femur. Normal visualized proximal tibia and fibula. Normal proximal tibiofibular articulation. Normal medial femorotibial compartment. There is severe degenerative arthrosis of the lateral femorotibial compartment with severe joint space narrowing. There is moderate degenerative arthrosis of the patellofemoral articulation. The soft tissue structures are unremarkable. RAD/Knee 4 or More Views IMPRESSION: Degenerative arthrosis. Electronically Signed: Jorge Alberto Aparicio MD at 15:26 EDT ,
[2024-05-28 16:22] VITALS: BP 146/79; PULSE 70; RESP 18; TEMP 36.4; O2SAT 97
== END 2024-05-28 16:23 | disposition home or self-care (01) ==
PROVIDERS: Emergency Provider Emergency Medicine; Visit Provider Emergency Medicine
DX: M17.11 Unilateral primary osteoarthritis, right knee (principal); M25.511 Pain in right shoulder; E78.5 Hyperlipidemia, unspecified; Z59.00 Homelessness unspecified; F17.210 Nicotine dependence, cigarettes, uncomplicated; Z90.49 Acquired absence of other specified parts of digestive tract; I25.2 Old myocardial infarction
CPT/HCPCS: 73564; 96372; 99282

== ENCOUNTER 2024-07-01 23:24 | Emergency (ER) | payer MEDICARE, SELFPAY ==
[2024-07-01 23:24] VITALS: BP 144/85; PULSE 78; RESP 16; TEMP 36.7; O2SAT 99; BMI 24.9
--- NOTE | 2024-07-01 23:39 | EDS_ITS ---
HPI History of Present Illness Chief Complaint: Upper Extremity Injury Informant: patient and friend Narrative Narrative: 58-year-old female has had gradual onset of pain in her right shoulder she points to the subacromial area and posterior, for the past 3 months. She does not recall an acute injury. This is the first time she has had it evaluated. She denies any numbness or tingling. She states movement hurts and pretty much everywhere. Lmdzv-[id number]-lzgcflxg. 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) Non-ischemic cardiomyopathy Seizures Acute osn-WV-ubfgxxkda myocardial infarction (08/2016) Hyperlipidemia Home Medications ?Medication ?Instructions ?Recorded ?Last Taken ?Type multivitamin 1 tab PO DAILY 11/10/22 Unknown History Allergy/AdvReac Type Severity Reaction Status Date / Time Influenza Virus Vaccines Allergy Anaphylaxis Verified 07/01/24 23:25 acetaminophen (From Tylenol) AdvReac Other Verified 07/01/24 23:25 naproxen sodium (From Aleve) AdvReac Other Verified 07/01/24 23:25 Family History Sister Cancer Sister Colon cancer Mother Colon cancer Surgical History History of left heart catheterization (09/04/16) Hx of appendectomy Social History Smoking Status: Current some day smoker tobacco type: cigarettes how long ago did patient quit smokin years ago alcohol intake: current alcohol intake frequency: holidays/special occasions only substance use type: does not use caffeine: Yes Type: coffee Number of servings: 1 ROS ROS ED Constitutional Constitutional ED: Denies chills or fever(s) Musculoskeletal Musculoskeletal: Reports extremity pain; Denies neck pain Integumentary Denies Abrasions, rash or wounds Neurologic Neurologic: Denies paresthesias or weakness EXAM Physical Exam Const Vital Signs: 07/01/24 23:24 Temperature 98.1 F Temperature Source Temporal Pulse Rate 78 Respiratory Rate 16 Blood Pressure 144/85 H Blood Pressure Mean 104 Pulse Ox 99 Positive well nourished and well developed General Appearance ED: well developed and NAD Neck full ROM and supple Back/Spine normal ROM and normal to inspection Extremity Extremity Narrative: No deformity of the right shoulder which is normal on inspection. She has some subacromial tenderness. There is some anterior tenderness at the short head of the biceps as well. No acromioclavicular tenderness. She is able to move it in all directions but in short distance. She has an abnormal speeds test. She can resist against internal rotation with little difficulty. She has limited abduction due to pain. Neuro oriented x3, no focal motor deficits and no sensory deficits noted Sensorium / Orientation: alert Psych mental status grossly normal and thought process normal Skin no wounds Rashes: no rashes MDM MDM MDM Narrative Medical decision making narrative: Although she states she has not had this evaluated in the last 3 months, she was here 1 month ago for the same thing and had x-rays of the right shoulder which I reviewed. It was negative for any acute. Clinically, this is consistent with impingement or biceps tendinitis or both. She could also have a rotator cuff tear. She does not have a frozen shoulder or a septic arthritis or any findings of that. She is advised to follow-up with orthopedics if she has continued problems, there is no indication for an emergent MRI. Because she has a history of erosive esophagitis and allergy to naproxen going to give her a dose of Decadron to see if that helps her pain. History & Record Review Additional record(s) reviewed:: Prior outpatient record and Prior ED visit Discharge Plan Triage Chief Complaint: Upper Extremity Injury ED Provider: Rubén Geronimo Dx/Rx/DC Orders Clinical Impression: Impingement syndrome of right shoulder Instructions: ED Shoulder Impingement Syndrome Prescriptions: No Action multivitamin Tablet 1 tab PO DAILY Primary Care Provider: Care Physician,No Primary Referrals: Mu Liao DO [Med Staff - Active Staff] - Print Language: Portuguese Disposition Disposition: Home, Self Care
[2024-07-02] MEDS: dexAMETHasone 4 MG Tablet 8 MG PO (00:04)
== END 2024-07-02 00:05 | disposition home or self-care (01) ==
PROVIDERS: Emergency Provider Emergency Medicine; Visit Provider Emergency Medicine
DX: M75.41 Impingement syndrome of right shoulder (principal); E78.5 Hyperlipidemia, unspecified; I25.2 Old myocardial infarction; Z90.49 Acquired absence of other specified parts of digestive tract; F17.210 Nicotine dependence, cigarettes, uncomplicated
CPT/HCPCS: 99282

== ENCOUNTER 2024-07-21 22:25 | Emergency (ER) | payer MEDICARE, MEDICAID, SELFPAY ==
[2024-07-21 22:26] VITALS: BP 142/80; PULSE 107; RESP 20; TEMP 36.1; O2SAT 71; BMI 25.4
--- NOTE | 2024-07-21 22:27 | CT_ITS ---
EXAM: CT HEAD WITHOUT INTRAVENOUS CONTRAST CLINICAL INDICATION: Seizure TECHNIQUE: Multiple axial images were obtained of the head without intravenous contrast. This CT exam was performed using one or more of the following dose reduction techniques: automated exposure control, adjustment of the mA and/or kV according to patient size, and/or use of iterative reconstruction technique. RADIATION DOSE: CTDIvol = 44.99 mGy, DLP = 796.11 mGy-cm COMPARISON: No relevant prior studies available. FINDINGS: BRAIN AND EXTRA-AXIAL SPACES: Multiple small calcified subependymal nodules in the lateral ventricles. No intra- or extra-axial hemorrhage. No evidence of acute infarct. No intracranial mass or mass effect. There is preservation of the donis/white matter interface. Posterior fossa structures are unremarkable. No hydrocephalus. Basal cisterns are patent. BONES/JOINTS: Unremarkable. No discrete lytic or blastic abnormalities. SINUSES: Unremarkable as visualized. Clear. MASTOID AIR CELLS: Unremarkable. Clear. ORBITS: Visualized globes, extraocular muscles, optic nerves and retrobulbar fat appear unremarkable. CT/Brain/Head without Contrast IMPRESSION: 1. Multiple small calcified subependymal nodules in the lateral ventricles. This likely indicates tuberous sclerosis, which can be a cause of seizures. 2. No acute intracranial findings. Electronically Signed: Jorge Alberto Armas MD at 23:27 EDT ,
--- NOTE | 2024-07-21 22:30 | EX.ED.DYSGE1 ---
HPI History of Present Illness Chief Complaint: Seizure Narrative Narrative: History and physical mildly limited to postictal state. History obtained from EMS. 58-year-old female brought in for 2 seizures lasting approximately 2 minutes each. They state that she has past medical history of prior seizure disorder. On obtaining history from the patient, she states she has not had a seizure in years, and is currently not taking any medication. She denies any headache or prodromal symptoms. She states that her leg was shaking first and then that is all she can remember. There was no reported loss of bowel or bladder. She states she feels groggy and sleepy. 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) Non-ischemic cardiomyopathy Seizures Acute [id number] myocardial infarction (08/2016) Hyperlipidemia Home Medications ?Medication ?Instructions ?Recorded ?Last Taken ?Type ibuprofen 200 mg tablet (Advil) 600 mg PO PRN 07/21/24 Unknown History Allergy/AdvReac Type Severity Reaction Status Date / Time Influenza Virus Vaccines Allergy Anaphylaxis Verified 07/21/24 22:26 acetaminophen (From Tylenol) AdvReac Other Verified 07/21/24 22:26 naproxen sodium (From Aleve) AdvReac Other Verified 07/21/24 22:26 Family History Sister Cancer Sister Colon cancer Mother Colon cancer Surgical History History of left heart catheterization (09/04/16) Hx of appendectomy Social History Smoking Status: Former smoker how long ago did patient quit smokin years ago alcohol intake: current alcohol intake frequency: holidays/special occasions only substance use type: does not use caffeine: Yes Type: coffee Number of servings: 1 ROS ROS ED ROS Narrative Constitutional: No fever, no chills. HEENT: No sore throat. No neck pain. No loss of vision. No rhinorrhea. Cardiovascular: No chest pain. No palpitations. No pedal edema. Respiratory: No cough, no shortness of breath. Abdominal: No abdominal pain. No nausea. No vomiting. No black stool, no rectal bleeding, no hematemesis. Genitourinary: No dysuria. No hematuria. Musculoskeletal: No myalgias. No arthralgias. Neurologic: No headaches. No dizziness. No lightheadedness. Positive leg shaking. 2 reported seizures lasting 2 minutes each. Skin: No rash. No change in color. Psychiatric: No depression. No anxiety. EXAM Physical Exam Narrative Exam Narrative: Afebrile. Vital signs noted. Positive tachycardia, regular. Lungs clear to auscultation bilaterally. Abdomen soft and nontender with normal active bowel sounds. Neurological examination is nonfocal and nonlateralizing. Initially she appeared groggy, but is now more responsive. She is more alert, and oriented to person. Mild pallor of skin. Chaperoned rectal examination revealed dark brown stool, no evidence of bleeding. Const Vital Signs: 07/21/24 22:26 07/22/24 00:26 07/22/24 01:35 Temperature 97 F L 98.3 F Temperature Source Temporal Oral Pulse Rate 107 H 97 87 Respiratory Rate 20 H 16 18 Blood Pressure 142/80 H 112/80 122/75 H Blood Pressure Mean 100 90 90 Blood Pressure Source Monitor Blood Pressure Position Semi-Fowlers Blood Pressure Location Right Arm Pulse Ox 71 100 100 Oxygen Delivery Method Room Air Nasal Cannula Nasal Cannula Oxygen Flow Rate (L/min) 2 4 07/22/24 01:41 07/22/24 01:41 07/22/24 01:50 Temperature 98.2 F Temperature Source Oral Pulse Rate 91 90 Respiratory Rate 18 16 Blood Pressure 122/75 H 125/73 H Blood Pressure Mean 90 90 Blood Pressure Source Monitor Blood Pressure Position Semi-Fowlers Blood Pressure Location Right Arm Pulse Ox 100 98 99 Oxygen Delivery Method Nasal Cannula Nasal Cannula Nasal Cannula Oxygen Flow Rate (L/min) 4 2 2 07/22/24 02:24 07/22/24 02:50 07/22/24 03:00 Temperature 98.4 F 98.3 F Temperature Source Oral Pulse Rate 88 83 84 Respiratory Rate 12 16 16 Blood Pressure 127/76 H 117/65 129/68 H Blood Pressure Mean 93 82 88 Blood Pressure Source Monitor Blood Pressure Position Semi-Fowlers Blood Pressure Location Right Arm Pulse Ox 97 98 98 Oxygen Delivery Method Nasal Cannula Nasal Cannula Oxygen Flow Rate (L/min) 2 2 MDM MDM MDM Narrative Medical decision making narrative: Differential diagnosis does include recurrent seizures versus alcohol withdrawal versus electrolyte imbalance/dehydration versus syncope with tonic-clonic motions. I did review her prior problem list, and she was diagnosed with tuberous sclerosis and she had seizure disorder as a child. Her is now at the bedside who confirms that she started shaking her leg, then had 2 seizures while they were at the gas station. She does have a history of seizures, and had a seizure a few months ago. EKG was obtained which demonstrates sinus tachycardia with PACs at [address] changes. No STEMI. No significant change from previous from 2021. I reviewed her laboratory work and she has normal white count of 5.3, hemoglobin is low at 6.1, hematocrit 22.1 with platelet count normal at 318, RBCs are low at 2.81. Review of her electrolyte panel shows BUN elevated at 32 with creatinine 2.82, but in review of her prior laboratory she has chronic kidney disease and this appears to be around her baseline. AST is low at 14 ALT less than 6. Alcohol is negative at 4.0. Chest x-ray 1 view interpreted by myself independently shows chronic lung disease but no evidence of pneumonia or pneumothorax. I reviewed the radiology report which confirms my independent interpretation. She was hypoxic on room air, which I think may be secondary to her anemia requiring transfusion. I reviewed the radiology report of the CT of the brain which shows no acute process, but is consistent with her previous diagnosis of tuberous sclerosis. I do feel that she probably has a chronic problem with seizures. I reviewed her urinalysis, and there are 50-100 WBCs. She had denied any dysuria on the review of systems but she will be treated with Rocephin as well. Chaperoned rectal examination showed dark brown stool, but no evidence of bleeding. I reviewed the I fob which is negative for occult blood. This may be more of a chronic anemia. Given her anemia requiring transfusions, UTI, and hypoxia, patient will be discussed with the hospitalist for admission. In discussion with Dr. Heredia, concern is that with her tuberous sclerosis, and her 2 seizures tonight, that she will require neurology consultation and intervention. As this is only available through telehealth, he suggested transfer. In discussion with the patient, she has been to [facility] In the past. She will be loaded with Keppra 1 g intravenously. Disposition is transfer. She is in stable condition. History & Record Review Discussion w/independent historian: Patient, Family (Spouse) and Friend Additional record(s) reviewed:: Prior outpatient record and Prior labs (Chronic kidney disease) Lab Data Attestation: I reviewed the patient's lab results. Labs: Laboratory Results - last 24 hr 07/21/24 07/21/24 07/21/24 22:35 23:15 23:37 WBC 5.3 RBC 2.81 L Hgb 6.1 L Hct 22.1 L MCV 78.6 L MCH 21.7 L MCHC 27.6 L RDW Std Deviation 49.4 H RDW Coeff of Tobias 17.2 H Plt Count 318 MPV 9.8 Immature Gran % (Auto) 0.600 Neut % (Auto) 64.1 Lymph % (Auto) 21.6 [place] % (Auto) 10.6 H Eos % (Auto) 2.5 Baso % (Auto) 0.6 Absolute Neuts (auto) 3.4 Absolute Lymphs (auto) 1.14 Nucleated RBC % 0 Differential Comment Platelet Estimate ADEQUATE Hypochromasia 2+ Anisocytosis 1+ Sodium 139 Potassium 3.8 Chloride 106 Carbon Dioxide 19.0 L Anion Gap 14 BUN 32 H Creatinine 2.82 H Estim Creat Clear Calc 19.28 Est GFR (MDRD) Af Amer 22 L Est GFR (MDRD) Non-Af 18 L BUN/Creatinine Ratio 11.3 Glucose 144 H Calcium 8.4 L Total Bilirubin 0.20 AST 14 L ALT < 6 L Alkaline Phosphatase 95 Total Protein 7.4 Albumin 2.7 L Globulin 4.7 H Albumin/Globulin Ratio 0.6 L Urine Color Yellow Urine Clarity Cloudy Urine pH 6.0 Ur Specific [place] 1.015 Urine Protein 100 H Urine Glucose (UA) Normal Urine Ketones Negative Urine Occult Blood 50 H Urine Nitrite Negative Urine Bilirubin Negative Urine Urobilinogen Normal Ur Leukocyte Esterase 500 H Urine RBC 0-5 SEEN Urine WBC 50-100 SEEN Ur Squamous Epith Cells 0 SEEN Urine Bacteria 2+ Urine Mucus 0 SEEN Urine Opiates Screen NEGATIVE Urine Methadone Screen NEGATIVE Ur Barbiturates Screen NEGATIVE Ur Phencyclidine Scrn NEGATIVE Ur Amphetamines Screen NEGATIVE MDMA (Ecstasy) Screen NEGATIVE U Benzodiazepines Scrn NEGATIVE Urine Cocaine Screen NEGATIVE U Cannabinoids Screen NEGATIVE Ur Drug Screen Comment Ethyl Alcohol 4.0 Blood Type A POSITIVE Antibody Screen NEGATIVE Crossmatch See Detail Radiography Chest X-Ray - ED: 1 View, Read by ED Physician, Read by Radiologist and Chronic Changes Diagnostic Testing: Clinical Impression(s) from Imaging Studies Brain CT 07/21/24 22:27 IMPRESSION: 1. Multiple small calcified subependymal nodules in the lateral ventricles. This likely indicates tuberous sclerosis, which can be a cause of seizures. 2. No acute intracranial findings. Electronically Signed: Jorge Alberto Armas MD at 23:27 EDT , Chest X-Ray 07/21/24 23:00 IMPRESSION: Coarse interstitial markings throughout the pulmonary parenchyma, consistent with chronic lung disease. Electronically Signed: Jorge Alberto Armas MD at 23:13 EDT , Management Discussion w/another healthcare provider: Hospitalist and Other ([facility] Transfer line) Discharge Plan Dx/Rx/DC Orders Clinical Impression: Anemia requiring transfusions, Hypoxia, Seizures, Tuberous sclerosis, Chronic kidney disease (CKD) Disposition Disposition: Acute Care [facility]
[2024-07-21 22:46] LABS: Absolute Lymphocyte Count 1.14 X10^3/uL (0.83-4.51); Absolute Neutrophil Count 3.4 X10^3/uL (2.0-7.7); Basophil# 0.03 X10^3/uL; Basophil% 0.6 % (0-1); Eosinophil# 0.13 X10^3/uL; Eosinophils% 2.5 % (0-5); Hematocrit 22.1 % (37-47); Hemoglobin 6.1 g/dL (12.0-15.0); Lymphocyte # 1.14 X10^3/ul (0.83-4.51); Lymphocyte % 21.6 % (19-41); Mean Corp Hgb Conc 27.6 g/dL (32-36); Mean Corpuscular Hgb 21.7 pg (27.0-32.0); Mean Corpuscular Volume 78.6 fL (81-99); Mean Platelet Vol. 9.8 fl (6.2-12.0); Monocyte# 0.56 X10^3/uL; Monocyte% 10.6 % (0-10); NRBC Flagged by Analyzer 0 % (0-5); Neutrophil # 3.38 X10^3/uL (2.7-7.7); Neutrophil % 64.1 % (47-70); POSITIVE COUNT YES; Platelet Count 318 K/mm3 (150-450); RBC Distribution Width CV 17.2 % (11.6-14.6); RBC Distribution Width SD 49.4 fl (35.1-43.9); Red Blood Count 2.81 M/mm3 (4.2-5.4); White Blood Count 5.3 K/mm3 (4.4-11.0)
--- NOTE | 2024-07-21 23:00 | RAD_ITS ---
EXAM: XR CHEST, 1 VIEW CLINICAL INDICATION: shortness of breath TECHNIQUE: Frontal view of the chest. COMPARISON: Single view chest 09/18/2022 FINDINGS: LUNGS AND PLEURAL SPACES: Coarse interstitial markings throughout the pulmonary parenchyma, consistent with chronic lung disease. No pneumothorax. No effusion. HEART: Unremarkable. Cardiac silhouette not enlarged. MEDIASTINUM: Central airways and mediastinal contour are unremarkable. BONES/JOINTS: Unremarkable. No acute fracture. SOFT TISSUES: Unremarkable. RAD/Chest 1 View (Portable) IMPRESSION: Coarse interstitial markings throughout the pulmonary parenchyma, consistent with chronic lung disease. Electronically Signed: Jorge Alberto Armas MD at 23:13 EDT ,
[2024-07-21 23:03] LABS: Differential Indicated SCAN CRITERIA MET
[2024-07-21 23:18] LABS: ALB/GLOB Ratio 0.6 RATIO (0.9-2.4); AST(SGOT) 14 U/L (15-37); Alanine Aminotransfer ALT/SGPT < 6 U/L (13-56); Albumin, Serum 2.7 g/dL (3.2-5.0); Alkaline Phosphatase 95 U/L (45-117); Anion Gap 14 (5-15); BUN 32 mg/dL (7-18); BUN/Creat Ratio 11.3 RATIO (10-20); Calcium,Total 8.4 mg/dL (8.5-10.1); Chloride 106 mmol/L (98-107); Creatinine, Serum 2.82 mg/dL (0.55-1.02); EST Glomerular Filtration Rate 18 mL/min (>60); Est Glom Filt Rate - Afr Amer 22 mL/min (>60); Estimated Creatinine Clearance 19.28 ml/min; Globulin 4.7 g/dL (2.2-4.2); Glucose 144 mg/dL (74-106); Potassium 3.8 mmol/L (3.5-5.1); Protein, Total 7.4 g/dL (6.4-8.2); Sodium Level 139 mmol/L (136-145)
[2024-07-21 23:19] LABS: Platelet Estimate ADEQUATE (ADEQ)
[2024-07-21 23:20] LABS: Anisocytosis 1+; Hypochromasia 2+
[2024-07-21 23:27] LABS: Mucous, Urine 0 SEEN /hpf (<or=2+); Squamous Epithelial Cells - UA 0 SEEN /hpf (5-10)
[2024-07-21 23:31] LABS: Color, Urine Yellow (Yellow); Glucose, Dipstick Normal (Normal); Ketone-Dipstick Negative (Negative); Leukocyte Esterase-Dipstick 500 /ul (Negative); Nitrite-Dipstick Negative (Negative); Occult Blood-Urine 50 /ul (Negative); Protein-Dipstick 100 mg/dl (Negative); Specific Gravity, Urine 1.015 (1.002-1.030); Urine Bilirubin Dipstick Negative (Negative); Urine Clarity Cloudy (Clear); Urine Urobilinogen Normal (Normal)
--- OUTSIDE RECORDS SUMMARY | 2024-07-21 23:47 | XMS RPT_ITS | CCD ---
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 SHINGRIX VACCINE(1 of 2) Completed LIPID SCREEN due on 08/20/2014 PAP TESTING due on 08/26/2014 HPV TESTING due on 08/26/2014 DEPRESSION SCREENING due on 07/15/2017 DIABETES SCREEN due on 07/15/2019 DTAP,TDAP,TD(2 - Td) due on 08/20/2019 MAMMOGRAM due on 01/04/2020 Advanced Directives Completed: Have you ever planned for future healthcare decisions with a power of traffic law attorney, living will, or advance directives? Referrals: Message Sent to Practice: Navigation Signature: Petar Goldstein January 31, 2021 12:54 PM Allergies As of Date: 01/31/2021 Noted Allergy Reaction ALEVE (NAPROXEN SODIUM) 08/20/2009 8 - GI Upset ASPIRIN 08/20/2009 8 - GI Upset TYLENOL (ACETAMINOPHEN) 08/20/2009 8 - GI Upset Date Reviewed: 02/11/2019 Reviewed by: Cassandra Alejandro - Fully Assessed Reason for Visit: Population Health Navigation Outreach [3910] Cmt: Deferred Care Prescriptions as of 01/31/2021 Sig: * FLINTSTONES COMPLETE (IRON) C* Problem List As Of Date 01/31/2021 Noted Resolved Tendonitis [M77.9] 09/10/2009 Seizure disorder (HCC) [G40.909] 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] Letter Text Encounter Status:Closed by PETAR GOLDSTEIN on 01/31/21 [facility] Clinical Note 12-07-2020 Note Date & Type Note Facility 12-07-2020 Note Patient Outreach ([facility]) CAROLANN NGUYEN ([id number]) 1965 F Date Time Provider Department 12/07/20 EST[facility] ELIZABETH During your visit today, we recorded the following information about you: Allergies As of Date: 12/07/2020 Noted Allergy Reaction ALEVE (NAPROXEN SODIUM) 08/20/2009 8 - GI Upset ASPIRIN 08/20/2009 8 - GI Upset TYLENOL (ACETAMINOPHEN) 08/20/2009 8 - GI Upset Date Reviewed: 02/11/2019 Reviewed by: Cassandra Alejandro - Fully Assessed Order(s):SARS-COVID VACCINE 1ST DOSE APPT [[id number]] Order #: [id number] FUTURE Prescriptions as of 12/07/2020 Sig: * FLINTSTONES COMPLETE (IRON) C* Problem List As Of Date 12/07/2020 Noted Resolved Tendonitis [M77.9] 09/10/2009 Seizure disorder (HCC) [G40.909] More... 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 Encounter Status:Closed by MIKEL KWON on 12/10/20 [facility] Summary Purpose Family History No Family History Records FoundNo Family History Records Found Advance Directives No Advanced Directives Records FoundNo Advanced Directives Records Found Additional Source Comments INFORMATION SOURCE (unrecogn ized section and content) DATE CREATED AUTHOR [facility]/2019 [facility] DATE CREATED AUTHOR AUTHOR'S ORGANIZ ATION 11/04/2021 [facility] FOR RECORDS PERTAINING TO PATIENTS WHO ARE OR HAVE BEEN ENROLLED IN A CHEMICAL DEPENDENCY/SUBSTANCEABUSE PROGRAM, SOME INFORMATION MAY BE OMITTED. This clinical summary was aggregated from multiple sources. Caution should be exercised in using it in the provision of clinical care. This summary normalizes information from multiple sources, and as a consequence, information in this document may materially change the coding, format and clinical context of patient data. In addition, data may be omitted in some cases. CLINICAL DECISIONS SHOULD BE BASED ON THE PRIMARY CLINICAL RECORDS. [facility] [employer] provides no warranty or guarantee of the accuracy or completeness of information in this document.
[2024-07-21 23:50] LABS: Bacteria 2+ /hpf (None Seen); Red Blood Cells-Urine 0-5 SEEN /hpf (0-5); White Blood Cells 50-100 SEEN /hpf (0-5)
[2024-07-21 23:58] LABS: Amphetamine Urine VISTA NEGATIVE (<1000 ng/mL); Barbiturate Urine VISTA NEGATIVE (< 200 ng/mL); Benzodiazepine Urine VISTA NEGATIVE (< 200 ng/mL); Cocaine Urine VISTA NEGATIVE (< 300 ng/mL); Ecstacy Urine VISTA NEGATIVE (< 500 ng/mL); Methadone Urine VISTA NEGATIVE (< 300 ng/mL); PCP Urine VISTA NEGATIVE (< 25 ng/mL); THC Urine VISTA NEGATIVE (< 50 ng/mL); Vista UDS pH Range 5
[2024-07-22] VITALS (12 sets, daily range): BP systolic 112–129; BP diastolic 65–80; PULSE 75–97; RESP 12–18; TEMP 36.8–36.9; O2SAT 97–100
[2024-07-22] MEDS: Ceftriaxone 1 GM/50 ML BAG IV (00:23)
[2024-07-22] MEDS: levETIRAcetam IV 1,000 MG/100 ML BAG 400 MG IV (01:18)
== END 2024-07-22 04:34 | disposition short-term general hospital (02) ==
PROVIDERS: Emergency Provider Emergency Medicine; Visit Provider Emergency Medicine
DX: D64.9 Anemia, unspecified (principal); R56.9 Unspecified convulsions; I42.8 Other cardiomyopathies; Q85.1 Tuberous sclerosis; Z87.891 Personal history of nicotine dependence; R09.02 Hypoxemia; N18.9 Chronic kidney disease, unspecified; I25.2 Old myocardial infarction; E78.5 Hyperlipidemia, unspecified; R00.0 Tachycardia, unspecified
CPT/HCPCS: 36430; 70450; 71045; 80053; 80307; 81001; 82077; 82274; 85025; 86850; 86900; 86901; 86920; 87077; 87086; 87088; 87186; 93005; 96361; 96365; 99285; P9016; P9612; A4216

== ENCOUNTER → 2025-09-04 | Outpatient (CLI) | payer MEDICARE, MEDICAID, SELFPAY ==
[2025-09-04 10:51] LABS: Hematocrit 28.7 % (37-47); Hemoglobin 8.7 g/dL (12.0-15.0); Immature Granulocytes Count 0.020 X10^3/uL (0.0-0.0); Mean Corp Hgb Conc 30.3 g/dL (32-36); Mean Corpuscular Volume 85.2 fL (81-99); Mean Platelet Vol. 9.0 fl (6.2-12.0); NRBC Flagged by Analyzer 0 % (0-5); Platelet Count 393 K/mm3 (150-450); RBC Distribution Width CV 14.7 % (11.6-14.6); RBC Distribution Width SD 45.4 fl (35.1-43.9); Red Blood Count 3.37 M/mm3 (4.2-5.4); White Blood Count 5.5 K/mm3 (4.4-11.0)
[2025-09-04 11:46] LABS: AST(SGOT) 14 U/L (<=31); Alanine Aminotransfer ALT/SGPT 7 U/L (<=34); Albumin, Serum 4.0 g/dL (3.4-4.8); Alkaline Phosphatase 66 U/L (35-104); Anion Gap 13 (5-15); BUN 28 mg/dL (4-19); BUN/Creat Ratio 13.4 RATIO (10-20); Calcium,Total 9.2 mg/dL (7.6-11.0); Carbon Dioxide 20.0 mmol/L (21.0-32.0); Chloride 107 mmol/L (98-108); Cholesterol 139 mg/dL (<=200); Globulin 3.1 g/dL (2.2-4.2); Glucose 93 mg/dL (70-99); Low Density Lipoprotein Calc. 80 mg/dL; Potassium 4.3 mmol/L (3.3-5.1); Triglycerides 93 mg/dL; Very Low Density Lipoprotein 19 mg/dL (5-40); cholesterol:hdl ratio screen 3.33
== END | disposition home or self-care (01) ==
LOC: LAB 10:07
PROVIDERS: Referring Provider Student in an Organized Health Care Education/Training Program; Visit Provider Student in an Organized Health Care Education/Training Program
DX: D64.9 Anemia, unspecified (principal); R79.89 Other specified abnormal findings of blood chemistry; E78.5 Hyperlipidemia, unspecified
CPT/HCPCS: 36415; 80053; 80061; 85025